=== PATIENT | female | born 1940 | race Caucasian/White ===

== ENCOUNTER 2017-11-23 12:08 | Emergency (ER) | payer MEDICARE, OTHER ==
[~2017-11-23] VITALS: Ht 152.4 cm; Wt 95.2 kg
[~2017-11-23 12:08] MED LIST: ALLO100 PO; AMLO5 PO; ANAS1 PO; ASPI81CH PO; ASPI81EC PO; Aranesp40 MCG/0.4 INJ; Baclofen10 MG PO; CLON.2 PO; DARVOCET; FOLI1 PO; FURO20 PO; HYDACE5 PO; HYDR1TAB94 PO; HYDSUL200 PO; LEVFLO250 PO; LOSA50 PO; METO50 PO; METO50ER PO; METTREX2.5 PO; MULVITMINF PO; Mucinex600 MG PO; POTA10T PO; PRAV20 PO; Prilosec Otc20 MG PO; TRIHYD253B PO; Tylenol325 MG PO; VITAMIN D-32000 UNIT PO; Vibramycin100 MG PO
== END 2017-11-23 14:29 | disposition home or self-care (01) ==
LOC: ER 12:08
DX: S70.01XA Contusion of right hip, initial encounter (principal); M25.511 Pain in right shoulder; M25.562 Pain in left knee; M25.561 Pain in right knee; M25.571 Pain in right ankle and joints of right foot; M25.572 Pain in left ankle and joints of left foot; Z87.891 Personal history of nicotine dependence; W01.0XXA Fall on same level from slipping, tripping and stumbling without subsequent striking against object, initial encounter
CPT/HCPCS: 73502; 99283

== ENCOUNTER 2017-12-11 14:34 | Emergency (ER) | payer MEDICARE, OTHER ==
[~2017-12-11] VITALS: Ht 152.4 cm; Wt 95.2 kg
[2017-12-11 15:21] LABS: BASOPHILS ABSOLUTE AUTO 0.06 K/mm3 (0.00-0.23); BASOPHILS PERCENT AUTO 1 % (0-2); EOSINOPHILS PERCENT AUTO 5 % (0-6); Hematocrit 34.1 % (33.0-51.0); Hemoglobin 10.2 g/dL (11.5-16.0); IMMATURE GRAN ABSOLUTE AUTO 0.11 K/mm3 (0.00-0.10); IMMATURE GRAN PERCENT AUTO 1 % (0-1); LYMPHOCYTES ABSOLUTE AUTO 1.26 K/mm3 (0.84-5.20); LYMPHOCYTES PERCENT AUTO 11 % (21-46); MONOCYTES ABSOLUTE AUTO 0.95 K/mm3 (0.16-1.47); MONOCYTES PERCENT AUTO 8 % (4-13); Mean Corpuscular HGB 27.6 pg (26.0-34.0); Mean Corpuscular HGB Conc 29.9 g/dL (31.5-36.5); Mean Corpuscular Volume 92 fL (80-100); Mean Platelet Volume 9.5 fL (9.1-12.4); NEUTROPHILS ABSOLUTE AUTO 8.96 K/mm3 (1.96-9.15); NEUTROPHILS PERCENT AUTO 75 % (41-73); Platelet Count 276 K/mm3 (150-400); RDW Coefficient Variation 19.5 % (11.7-14.2); RDW Standard Deviation 66.7 fL (35.1-46.3); White Blood Cell Count 11.94 K/mm3 (4.00-11.30)
[2017-12-11 15:31] LABS: International Normalized Ratio 1.02; Prothrombin Time Results 10.6 Sec (9.7-11.5)
[2017-12-11] MEDS ORDERED: XARELTO15 MG PO (15:41)
[2017-12-11 15:47] LABS: Albumin, Blood 3.3 g/dL (3.4-5.0); Albumin/Globulin Ratio 0.8 (0.8-1.8); Bilirubin, Total 0.3 mg/dL (0.1-1.0); Bun/Creatinine Ratio 8.1 (12.0-20.0); Calcium, Blood 8.7 mg/dL (8.5-10.1); Creatinine, Blood 2.36 mg/dL (0.40-1.00); Globulin, Blood 4.1 g/dL (2.2-4.0); Total Protein, Blood 7.4 g/dL (6.4-8.2)
[2017-12-11] MEDS ORDERED: ELIQUIS5 MG PO (16:11)
== END 2017-12-11 17:58 | disposition home or self-care (01) ==
LOC: ER 14:34
PROVIDERS: Emergency Medicine
DX: I26.99 Other pulmonary embolism without acute cor pulmonale (principal); Z88.8 Allergy status to other drugs, medicaments and biological substances; Z88.0 Allergy status to penicillin; Z88.5 Allergy status to narcotic agent; Z88.2 Allergy status to sulfonamides; Z79.899 Other long term (current) drug therapy; Z79.891 Long term (current) use of opiate analgesic; Z79.82 Long term (current) use of aspirin; I10 Essential (primary) hypertension; Z87.891 Personal history of nicotine dependence; Z85.3 Personal history of malignant neoplasm of breast
CPT/HCPCS: 36415; 71260; 74160; 80053; 85025; 85610; 93005; 93010; 99283; Q9967

== ENCOUNTER 2018-01-17 00:45 | Emergency (ER) | payer MEDICARE, OTHER ==
[~2018-01-17] VITALS: Ht 154.9 cm; Wt 93.4 kg
[~2018-01-17 00:45] MED LIST changes: +ELIQUIS5 MG PO; +XARELTO15 MG PO
[2018-01-17] MEDS ORDERED: ANAS1 PO (01:23)
[2018-01-17] MEDS ORDERED: VITAMIN E400 UNIT PO (01:25)
[2018-01-17 01:54] LABS: BASOPHILS ABSOLUTE AUTO 0.06 K/mm3 (0.00-0.23); BASOPHILS PERCENT AUTO 1 % (0-2); EOSINOPHILS ABSOLUTE AUTO 0.46 K/mm3 (0.00-0.68); EOSINOPHILS PERCENT AUTO 5 % (0-6); Hematocrit 39.3 % (33.0-51.0); Hemoglobin 11.9 g/dL (11.5-16.0); IMMATURE GRAN ABSOLUTE AUTO 0.04 K/mm3 (0.00-0.10); IMMATURE GRAN PERCENT AUTO 0 % (0-1); LYMPHOCYTES ABSOLUTE AUTO 1.28 K/mm3 (0.84-5.20); LYMPHOCYTES PERCENT AUTO 13 % (21-46); MONOCYTES ABSOLUTE AUTO 0.98 K/mm3 (0.16-1.47); MONOCYTES PERCENT AUTO 10 % (4-13); Mean Corpuscular HGB 28.2 pg (26.0-34.0); Mean Corpuscular HGB Conc 30.3 g/dL (31.5-36.5); Mean Corpuscular Volume 93 fL (80-100); Mean Platelet Volume 9.7 fL (9.1-12.4); NEUTROPHILS ABSOLUTE AUTO 7.22 K/mm3 (1.96-9.15); NEUTROPHILS PERCENT AUTO 72 % (41-73); Platelet Count 258 K/mm3 (150-400); RDW Coefficient Variation 15.2 % (11.7-14.2); RDW Standard Deviation 52.3 fL (35.1-46.3); Red Blood Cell Count 4.22 M/mm3 (3.80-5.20); White Blood Cell Count 10.04 K/mm3 (4.00-11.30)
[2018-01-17 02:05] LABS: Bun/Creatinine Ratio 11.5 (12.0-20.0); Calcium, Blood 8.7 mg/dL (8.5-10.1); Creatinine, Blood 2.87 mg/dL (0.40-1.00); Magnesium, Blood 2.2 mg/dL (1.6-2.4); Potassium, Blood 4.3 mmol/L (3.5-5.5)
== END 2018-01-17 02:45 | disposition home or self-care (01) ==
LOC: ER 00:45
PROVIDERS: Emergency Medicine
DX: M25.532 Pain in left wrist (principal); I10 Essential (primary) hypertension; N19 Unspecified kidney failure; Z88.6 Allergy status to analgesic agent; Z88.0 Allergy status to penicillin; Z88.2 Allergy status to sulfonamides; Z88.5 Allergy status to narcotic agent; Z79.899 Other long term (current) drug therapy; Z79.82 Long term (current) use of aspirin; Z99.2 Dependence on renal dialysis; Z87.891 Personal history of nicotine dependence
CPT/HCPCS: 36415; 80048; 83735; 85025; 99283

== ENCOUNTER 2018-02-24 08:33 | Emergency (ER) | payer MEDICARE, OTHER ==
[~2018-02-24] VITALS: Ht 152.4 cm; Wt 98.9 kg
[~2018-02-24 08:33] MED LIST changes: +OMEP20ER PO; +PRAV10 PO; -PRAV20 PO; -Prilosec Otc20 MG PO; +VITAMIN E400 UNIT PO
[2018-02-24] MEDS ORDERED: BUME2 PO (09:02)
[2018-02-24] MEDS ORDERED: GABA100 PO (09:03)
[2018-02-24 09:58] LABS: BASOPHILS ABSOLUTE AUTO 0.05 K/mm3 (0.00-0.23); BASOPHILS PERCENT AUTO 1 % (0-2); EOSINOPHILS ABSOLUTE AUTO 0.18 K/mm3 (0.00-0.68); EOSINOPHILS PERCENT AUTO 2 % (0-6); Hematocrit 40.6 % (33.0-51.0); Hemoglobin 12.5 g/dL (11.5-16.0); IMMATURE GRAN ABSOLUTE AUTO 0.08 K/mm3 (0.00-0.10); IMMATURE GRAN PERCENT AUTO 1 % (0-1); LYMPHOCYTES PERCENT AUTO 12 % (21-46); MONOCYTES PERCENT AUTO 8 % (4-13); Mean Corpuscular HGB Conc 30.8 g/dL (31.5-36.5); Mean Corpuscular Volume 94 fL (80-100); Mean Platelet Volume 9.8 fL (9.1-12.4); NEUTROPHILS ABSOLUTE AUTO 8.25 K/mm3 (1.96-9.15); NEUTROPHILS PERCENT AUTO 77 % (41-73); Platelet Count 276 K/mm3 (150-400); RDW Coefficient Variation 15.9 % (11.7-14.2); RDW Standard Deviation 54.7 fL (35.1-46.3); Red Blood Cell Count 4.31 M/mm3 (3.80-5.20); White Blood Cell Count 10.76 K/mm3 (4.00-11.30)
[2018-02-24 10:26] LABS: Albumin, Blood 3.3 g/dL (3.4-5.0); Albumin/Globulin Ratio 0.8 (0.8-1.8); Bilirubin, Total 0.5 mg/dL (0.1-1.0); Bun/Creatinine Ratio 11.4 (12.0-20.0); Creatinine, Blood 2.9 mg/dL (0.40-1.00); Globulin, Blood 4.4 g/dL (2.2-4.0); Potassium, Blood 4.3 mmol/L (3.5-5.5); Total Protein, Blood 7.7 g/dL (6.4-8.2)
[2018-02-24] MEDS ORDERED: Claritin5 MG/5 ML PO (11:02)
== END 2018-02-24 11:19 | disposition home or self-care (01) ==
LOC: ER 08:33
PROVIDERS: Emergency Medicine
DX: J06.9 Acute upper respiratory infection, unspecified (principal); I12.0 Hypertensive chronic kidney disease with stage 5 chronic kidney disease or end stage renal disease; N18.6 End stage renal disease; Z99.2 Dependence on renal dialysis; Z87.891 Personal history of nicotine dependence; Z88.6 Allergy status to analgesic agent; Z88.0 Allergy status to penicillin; Z88.2 Allergy status to sulfonamides; Z88.5 Allergy status to narcotic agent; Z79.899 Other long term (current) drug therapy; Z79.82 Long term (current) use of aspirin
CPT/HCPCS: 71046; 80053; 85025; 99283

== ENCOUNTER → 2018-05-28 | Outpatient (CLI) | payer MEDICARE, OTHER ==
[~2018-05-28] MED LIST changes: +BUME2 PO; +Claritin5 MG/5 ML PO; +GABA100 PO
[2018-05-28 11:14] LABS: Source, Urine Clean Catch
[2018-05-28 13:28] LABS: Appearance, Urine Cloudy (Clear); Bilirubin, Urine Neg (Neg); Blood, Urine 4+ (Neg); Color, Urine Yellow (P-Yellow); Glucose Qualitative, Urine 2+ (Neg); Ketones, Urine Neg (Neg); Leukocyte Esterase, Urine 2+ (Neg); Nitrite, Urine Neg (Neg); Protein, Urine 4+ (Neg); Urobilinogen, Urine NORM (Normal)
[2018-05-28 13:43] LABS: Squamous Epithelial Cells Not Seen /hpf (Few); White Blood Cells, Urine TNTC /hpf (0-5)
[2018-05-28 13:44] LABS: Bacteria Few /hpf
== END | disposition home or self-care (01) ==
LOC: LAB SHORT 11:11 → LAB 11:11
PROVIDERS: Internal Medicine Nephrology
DX: R30.0 Dysuria (principal)
CPT/HCPCS: 81001

== ENCOUNTER → 2018-07-24 | Outpatient (CLI) | payer MEDICARE, OTHER ==
[2018-07-24 12:35] LABS: Bilirubin, Urine Neg (Neg); Blood, Urine 2+ (Neg); Glucose Qualitative, Urine 1+ (Neg); Ketones, Urine Neg (Neg); Leukocyte Esterase, Urine 3+ (Neg); Nitrite, Urine Neg (Neg); Protein, Urine 4+ (Neg); Urobilinogen, Urine NORM (Normal)
[2018-07-24 12:57] LABS: Appearance, Urine Hazy (Clear); Color, Urine Yellow (P-Yellow)
[2018-07-24 12:59] LABS: Squamous Epithelial Cells Few /hpf (Few); White Blood Cells, Urine 25-50 /hpf (0-5)
[2018-07-24 13:01] LABS: Bacteria Rare /hpf
== END | disposition home or self-care (01) ==
LOC: LAB DAV 05:30
PROVIDERS: Internal Medicine Nephrology
DX: N39.0 Urinary tract infection, site not specified (principal)
CPT/HCPCS: 81001; 87086

== ENCOUNTER 2018-10-27 10:28 | Inpatient (IN) | payer MEDICARE, OTHER ==
[~2018-10-27] VITALS: Ht 152.4 cm; Wt 95.4 kg
[~2018-10-27 10:28] MED LIST changes: -OMEP20ER PO; -PRAV10 PO; +PRAV20 PO; +Prilosec Otc20 MG PO
[2018-10-27 11:23] LABS: BASOPHILS ABSOLUTE AUTO 0.04 K/mm3 (0.00-0.23); BASOPHILS PERCENT AUTO 0 % (0-2); EOSINOPHILS ABSOLUTE AUTO 0.21 K/mm3 (0.00-0.68); EOSINOPHILS PERCENT AUTO 2 % (0-6); Hematocrit 32.1 % (33.0-51.0); IMMATURE GRAN ABSOLUTE AUTO 0.06 K/mm3 (0.00-0.10); IMMATURE GRAN PERCENT AUTO 1 % (0-1); LYMPHOCYTES PERCENT AUTO 7 % (21-46); MONOCYTES ABSOLUTE AUTO 0.65 K/mm3 (0.16-1.47); MONOCYTES PERCENT AUTO 6 % (4-13); Mean Corpuscular HGB 30.6 pg (26.0-34.0); Mean Corpuscular HGB Conc 31.2 g/dL (31.5-36.5); Mean Corpuscular Volume 98 fL (80-100); Mean Platelet Volume 9.8 fL (9.1-12.4); NEUTROPHILS ABSOLUTE AUTO 8.69 K/mm3 (1.96-9.15); NEUTROPHILS PERCENT AUTO 84 % (41-73); Platelet Count 290 K/mm3 (150-400); RDW Coefficient Variation 15.6 % (11.7-14.2); RDW Standard Deviation 55.9 fL (35.1-46.3); Red Blood Cell Count 3.27 M/mm3 (3.80-5.20); White Blood Cell Count 10.35 K/mm3 (4.00-11.30)
[2018-10-27 12:39] LABS: Albumin, Blood 3.4 g/dL (3.4-5.0); Albumin/Globulin Ratio 0.8 (0.8-1.8); Bilirubin, Total 0.6 mg/dL (0.1-1.0); Bun/Creatinine Ratio 8.8 (12.0-20.0); Calcium, Blood 9.1 mg/dL (8.5-10.1); Creatinine, Blood 3.08 mg/dL (0.40-1.00); Globulin, Blood 4.4 g/dL (2.2-4.0); Potassium, Blood 4.5 mmol/L (3.5-5.5); Total Protein, Blood 7.8 g/dL (6.4-8.2); Troponin I 0.036 ng/mL (0.000-0.040)
[2018-10-28 05:10] LABS: Hematocrit 34.5 % (33.0-51.0); Hemoglobin 10.4 g/dL (11.5-16.0)
[2018-10-28 05:36] LABS: Magnesium, Blood 2.2 mg/dL (1.6-2.4)
[2018-10-28 05:50] LABS: Albumin, Blood 3.6 g/dL (3.4-5.0); Anion Gap 10 mmol/L (6-16); Blood Urea Nitrogen 20 mg/dL (8-24); Bun/Creatinine Ratio 7.1 (12.0-20.0); CO2, Blood 30 mmol/L (21-32); Calcium, Blood 9.3 mg/dL (8.5-10.1); Chloride, Blood 96 mmol/L (98-108); Creatinine, Blood 2.82 mg/dL (0.40-1.00); Glomerular Filtration Rate 17 (60-); Glucose, Blood 239 mg/dL (70-99); Phosphorus, Blood 3.5 mg/dL (2.5-4.9); Potassium, Blood 4.1 mmol/L (3.5-5.5); Sodium, Blood 136 mmol/L (136-145)
== END 2018-10-28 13:29 | disposition home or self-care (01) | DRG 291 ==
LOC: ER 10:28 → ERHOLD 14:58 → MEDS 14:58 → ENPENDDIS 10-28 12:35 → MEDS 10-28 13:29
PROVIDERS: Emergency Medicine; Internal Medicine; Internal Medicine Nephrology
DX: I13.2 Hypertensive heart and chronic kidney disease with heart failure and with stage 5 chronic kidney disease, or end stage renal disease (principal); J96.01 Acute respiratory failure with hypoxia; N18.6 End stage renal disease; I50.31 Acute diastolic (congestive) heart failure; D63.1 Anemia in chronic kidney disease; Z99.2 Dependence on renal dialysis; Z85.528 Personal history of other malignant neoplasm of kidney; Z87.891 Personal history of nicotine dependence; I42.9 Cardiomyopathy, unspecified; Z85.3 Personal history of malignant neoplasm of breast
CPT/HCPCS: 36415; 51798; 71046; 80053; 80069; 82947; 83735; 83880; 84443; 84484; 85014; 85018; 85025; 93005; 93010; 93306; 99285-25; J0360

== ENCOUNTER 2019-05-21 13:51 | Observation (INO) | payer MEDICARE, OTHER ==
[~2019-05-21] VITALS: Ht 152.4 cm; Wt 111.4 kg
[2019-05-21] MEDS ORDERED: Percocet 5-3251 EACH PO ×2 (14:30)
[2019-05-21] MEDS ORDERED: ELIQUIS5 MG PO ×2 (14:30)
[2019-05-21] MEDS ORDERED: ALLO100 PO ×2 (14:31)
[2019-05-21] MEDS ORDERED: CALCIPOTRIENE60 G1 TOP ×2 (14:31)
[2019-05-21] MEDS ORDERED: VITAMIN D32000 UNI1 PO ×2 (14:32)
[2019-05-21] MEDS ORDERED: [UNRECOGNIZED DRUG - OTHER] BOTHEYES ×2 (14:32)
[2019-05-21] MEDS ORDERED: FOLI1 PO ×2 (14:33)
[2019-05-21] MEDS ORDERED: CLON.1 PO ×2 (14:34)
[2019-05-21] MEDS ORDERED: METO50 PO ×4 (14:34→14:40)
[2019-05-21] MEDS ORDERED: ANASTROZOLE PO ×2 (14:34)
[2019-05-21] MEDS ORDERED: TYLENOL PO ×2 (14:35)
[2019-05-21 14:38] LABS: BASOPHILS ABSOLUTE AUTO 0.06 K/mm3 (0.00-0.23); BASOPHILS PERCENT AUTO 1 % (0-2); EOSINOPHILS ABSOLUTE AUTO 0.42 K/mm3 (0.00-0.68); EOSINOPHILS PERCENT AUTO 4 % (0-6); Hematocrit 38.8 % (33.0-51.0); Hemoglobin 11.7 g/dL (11.5-16.0); IMMATURE GRAN ABSOLUTE AUTO 0.07 K/mm3 (0.00-0.10); IMMATURE GRAN PERCENT AUTO 1 % (0-1); LYMPHOCYTES ABSOLUTE AUTO 0.95 K/mm3 (0.84-5.20); LYMPHOCYTES PERCENT AUTO 10 % (21-46); MONOCYTES ABSOLUTE AUTO 0.78 K/mm3 (0.16-1.47); MONOCYTES PERCENT AUTO 8 % (4-13); Mean Corpuscular HGB 30.2 pg (26.0-34.0); Mean Corpuscular HGB Conc 30.2 g/dL (31.5-36.5); Mean Corpuscular Volume 100 fL (80-100); Mean Platelet Volume 9.8 fL (9.1-12.4); NEUTROPHILS PERCENT AUTO 77 % (41-73); Platelet Count 227 K/mm3 (150-400); RDW Coefficient Variation 15.8 % (11.7-14.2); Red Blood Cell Count 3.88 M/mm3 (3.80-5.20); White Blood Cell Count 9.68 K/mm3 (4.00-11.30)
[2019-05-21] MEDS ORDERED: FURO20 PO ×2 (14:38)
[2019-05-21] MEDS ORDERED: HYDR10 PO ×2 (14:39)
[2019-05-21] MEDS ORDERED: PRAVASTATIN SOD10 MG PO ×2 (14:40)
[2019-05-21] MEDS ORDERED: OMEP20ER PO ×2 (14:40)
[2019-05-21 15:12] LABS: Albumin, Blood 3.8 g/dL (3.4-5.0); Bilirubin, Total 0.5 mg/dL (0.1-1.0); Bun/Creatinine Ratio 9.1 (12.0-20.0); Calcium, Blood 9.1 mg/dL (8.5-10.1); Creatinine, Blood 3.95 mg/dL (0.40-1.00); Globulin, Blood 3.9 g/dL (2.2-4.0); Potassium, Blood 3.8 mmol/L (3.5-5.5); Total Protein, Blood 7.7 g/dL (6.4-8.2)
--- NOTE | 2019-05-21 18:40 | NUR ---
PATIENT ADMITT THE PATIENT WAS ADMITTED TO THE MEDICAL FLOOR TO ROOM #361 AT 1720 FORM THE E/R. THE PATIENT'S ADMISSION WAS COMPLETED AT THAT TIME. THE PATIENT VITALS WERE WNL, LUNG SOUNDS WERE CLEAR BUT DIM IN THE BASES, THE PATIENT IS A&O X4. THE PATIENT IS NPO AT THIS TIME. WILL CONTINUE TO MONITOR.
[2019-05-22 05:27] LABS: Hematocrit 35.7 % (33.0-51.0); Hemoglobin 10.9 g/dL (11.5-16.0)
[2019-05-22 05:45] LABS: Albumin, Blood 3.4 g/dL (3.4-5.0); Anion Gap 8 mmol/L (6-16); Blood Urea Nitrogen 42 mg/dL (8-24); Bun/Creatinine Ratio 10.4 (12.0-20.0); CO2, Blood 29 mmol/L (21-32); Calcium, Blood 8.9 mg/dL (8.5-10.1); Chloride, Blood 101 mmol/L (98-108); Creatinine, Blood 4.04 mg/dL (0.40-1.00); Glomerular Filtration Rate 11 (60-); Glucose, Blood 142 mg/dL (70-99); Magnesium, Blood 2.2 mg/dL (1.6-2.4); Phosphorus, Blood 4.4 mg/dL (2.5-4.9); Potassium, Blood 3.9 mmol/L (3.5-5.5); Sodium, Blood 138 mmol/L (136-145)
--- NOTE | 2019-05-22 13:44 | NUR ---
DIALYSIS TOOK MACHINE INTO PCU 1, STARTED TO SETUP THE MACHINE. PT WAS IN A RECLINER AND DECIDED TO STAY IN IT FOR THE TX. GOT MACHINE READY AND WAS GOING TO START GETTING THE PT ON WHEN HE DECIDED TO RETURN TO BED. THE OPERATIONS GENERAL AGENT AND RN RETURNED PT TO BED. PLANNED TO RUN THE PT FOR 3 HOURS, BUT THE LAST 17 MIN IT BEGAN TO HAVE ART PRESSURE PROBLEMS. FLUSHED WITH NS. USED 2 ML HEPARIN BOLUS. DC'ED TX 14 MINS EARLY.
--- NOTE | 2019-05-22 17:38 | NUR ---
PATIENT TO HAVE SHRUTHI CATH FIXED ON FRIDAY. NO DIALYSIS TODAY DUE TO CONDITION OF CATH. PATIENT ALERT AND ORIENTED AND NO ACUTE CHANGES. NO CO OF SOB OR DISTRESS NOTED. CALL LIGHT WITHIN REACH.
--- NOTE | 2019-05-23 05:01 | NUR ---
Shift summary:Pt has had quite a bit of productive coughing during the night which increases her anxiety. Called MD and got order for tessalon pearles which seem to help some. BP 197/84. Another dose of hydralazine given. will recheck in an hour,
[2019-05-23 05:06] LABS: Hematocrit 36.3 % (33.0-51.0); Hemoglobin 11.1 g/dL (11.5-16.0)
[2019-05-23 05:26] LABS: Albumin, Blood 3.4 g/dL (3.4-5.0); Anion Gap 11 mmol/L (6-16); Blood Urea Nitrogen 48 mg/dL (8-24); Bun/Creatinine Ratio 12.1 (12.0-20.0); CO2, Blood 27 mmol/L (21-32); Calcium, Blood 9.1 mg/dL (8.5-10.1); Chloride, Blood 102 mmol/L (98-108); Creatinine, Blood 3.98 mg/dL (0.40-1.00); Glomerular Filtration Rate 12 (60-); Glucose, Blood 134 mg/dL (70-99); Magnesium, Blood 2.3 mg/dL (1.6-2.4); Phosphorus, Blood 4.6 mg/dL (2.5-4.9); Potassium, Blood 4.1 mmol/L (3.5-5.5); Sodium, Blood 140 mmol/L (136-145)
--- NOTE | 2019-05-23 08:56 | NUR ---
0840 PATIENT STATED IV SITE VERY PAINFUL. RED AND SWOLLEN UPON ASSESSMENT. ATTEMPTED TO FLUSH BUT VERY PAINFUL AND WAS LEAKING. NURSE REMOVED. PATIENT IS NOT ON ANY IV MEDS AT THIS TIME.
--- NOTE | 2019-05-23 17:24 | NUR ---
1715 PATIENT TO DISCHARGE HOME. NURSE WENT OVER DISCHARGE INSTRUCTIONS WITH PATIENT. PATIENT INSTRUCTED TO FOLLOW UP WITH LISTED DOCTORS. APPOINTMENTS UNABLE TO BE SCHEDULED SINCE ITS A FRIDAY. PT ALREADY HAS APPOINTMENT WITH PCP. NO NEW MEDS WHERE ORDERED. PATIENT TAKEN OUT BY WC TO BROTHER TO BE TAKEN HOME.
[2019-05-24] MEDS ORDERED: GABA100 PO (16:20)
[2019-05-24] MEDS ORDERED: Zantac150 MG PO (16:20)
[2019-05-24] MEDS ORDERED: CLON.5 PO ×3 (16:23→16:26)
[2019-05-24] MEDS ORDERED: TYLENOL PO (16:23)
== END 2019-05-23 17:16 | disposition home or self-care (01) ==
LOC: ER 13:51 → MEDS 13:52 → ER 15:37 → MEDS 15:37 → ER 05-23 10:47 → MEDS 05-23 10:47
PROVIDERS: Emergency Medicine; Internal Medicine Nephrology; ADMIT Family Medicine
DX: T82.49XA Other complication of vascular dialysis catheter, initial encounter (principal); I12.0 Hypertensive chronic kidney disease with stage 5 chronic kidney disease or end stage renal disease; N18.6 End stage renal disease; D63.1 Anemia in chronic kidney disease; J96.01 Acute respiratory failure with hypoxia; I16.0 Hypertensive urgency; K21.9 Gastro-esophageal reflux disease without esophagitis; M19.90 Unspecified osteoarthritis, unspecified site; M10.9 Gout, unspecified; E89.0 Postprocedural hypothyroidism; Z99.2 Dependence on renal dialysis; Z88.5 Allergy status to narcotic agent; Z88.6 Allergy status to analgesic agent; Z88.0 Allergy status to penicillin; Z88.2 Allergy status to sulfonamides; Z79.899 Other long term (current) drug therapy; Z79.01 Long term (current) use of anticoagulants; Z87.891 Personal history of nicotine dependence; Z86.711 Personal history of pulmonary embolism; Z85.3 Personal history of malignant neoplasm of breast; Z85.53 Personal history of malignant neoplasm of renal pelvis; Z96.641 Presence of right artificial hip joint; Z90.89 Acquired absence of other organs; Z90.5 Acquired absence of kidney
CPT/HCPCS: 36415; 71045; 80048; 80053; 80069; 83735; 83880; 85014; 85018; 85025; 93005; 93010; 96372; 96374; 96376; 99285-25; A9270; G0378; J0360; J1644

== ENCOUNTER 2019-05-25 09:50 | Day surgery (SDC) | payer MEDICARE, OTHER ==
[~2019-05-25] VITALS: Ht 154.9 cm; Wt 87.0 kg
[~2019-05-25 09:50] MED LIST changes: +ANASTROZOLE PO; +CALCIPOTRIENE60 G1 TOP; +CLON.1 PO; +CLON.5 PO; +HYDR10 PO; +OMEP20ER PO; +PRAVASTATIN SOD10 MG PO; +Percocet 5-3251 EACH PO; +TYLENOL PO; +VITAMIN D32000 UNI1 PO; +Zantac150 MG PO; +[UNRECOGNIZED DRUG - OTHER] BOTHEYES
--- NOTE | 2019-05-25 13:50 | NUR ---
PT VERBALIZED UNDERSTANDING OF WRITTEN AND VERBAL D/C INST. IV REMOVED. -BLEEDING OR SWELLING L UPPER CHEST AREA. PT TAKEN OUT OF THE HRT CENTER VIA GURNEY.
== END 2019-05-25 13:00 | disposition home or self-care (01) ==
LOC: MHTC 09:50
PROC: 0JPT3XZ Removal of Tunneled Vascular Access Device from Trunk Subcutaneous Tissue and Fascia, Percutaneous Approach (ICD-10-PCS; principal; 2019-05-25)
PROC: B5181ZA Fluoroscopy of Superior Vena Cava using Low Osmolar Contrast, Guidance (ICD-10-PCS; principal; 2019-05-25)
PROC: 02HV33Z Insertion of Infusion Device into Superior Vena Cava, Percutaneous Approach (ICD-10-PCS; principal; 2019-05-25)
PROC: 02PY33Z Removal of Infusion Device from Great Vessel, Percutaneous Approach (ICD-10-PCS; principal; 2019-05-25)
PROC: 0JH63XZ Insertion of Tunneled Vascular Access Device into Chest Subcutaneous Tissue and Fascia, Percutaneous Approach (ICD-10-PCS; principal; 2019-05-25)
DX: T82.590A Other mechanical complication of surgically created arteriovenous fistula, initial encounter (principal); N18.6 End stage renal disease; I12.0 Hypertensive chronic kidney disease with stage 5 chronic kidney disease or end stage renal disease; E11.22 Type 2 diabetes mellitus with diabetic chronic kidney disease; Z99.2 Dependence on renal dialysis; M06.9 Rheumatoid arthritis, unspecified; M81.0 Age-related osteoporosis without current pathological fracture; E03.9 Hypothyroidism, unspecified; M10.9 Gout, unspecified; Z90.5 Acquired absence of kidney; Z88.0 Allergy status to penicillin; Z88.5 Allergy status to narcotic agent; Z88.2 Allergy status to sulfonamides; Z88.8 Allergy status to other drugs, medicaments and biological substances; Z79.01 Long term (current) use of anticoagulants; Z79.899 Other long term (current) drug therapy; Z79.891 Long term (current) use of opiate analgesic
CPT/HCPCS: 36581; 99152; 99153; C1750; C1769; J1644; J2250; J3010; J7030; J7040

== ENCOUNTER 2019-10-05 08:11 | Day surgery (SDC) | payer MEDICARE, OTHER ==
--- NOTE | 2019-10-05 10:52 | NUR ---
PT PLACED ON 4LNC ON ARRIVAL. PT COUGHING UP SCANT AMOUNT OF BLOOD. PRACTICED RELAXATION BREATHING. PT DEMONSTRATING BACK WITHOUT DIFFICULTY. O2SATS IMPROVED AND ABLE TO DECREASE OXYGEN DOWN TO TWO LITERS. WILL CONTINUE TO MONITOR AND PROVIDE EMOTIONAL SUPPORT. DAJUAN PRADO CALLED PER PT REQUEST. AND IS WITH PATIENT AT THIS MOMENT. HEMATOMA TO BACK AT BIOPSY SITE HAS NOT GOTTEN BIGGER OUT OF PARAMETER OF LINE DRAWN BY RAD DEPARTMENT. WILL CONTINUE TO MONITOR. WARM BLANKETS PROVIDED, REPOSTIONED TO HIGH SEMI WHITE POSITION.
--- NOTE | 2019-10-05 11:33 | NUR ---
PT TOOK AM PILLS. UPDATED LIST. PT B/P REMAINS HIGH, SPOKE TO AMADOR AT [facility] AND CHANGED APPT TO 1PM INSTEAD OF 11AM DUE TO HER BEING WITH US AT THAT TIME. PT STATES B/P ALWAYS RUNS HIGH. WILL CONTINUE TO MONITOR.
--- NOTE | 2019-10-05 13:05 | NUR ---
SPOKE TO DR DEVI REGARDING HIGH B/P AND LOW O2 SATS ON RA. DR KEITAED PT TO BE DISCHARED AND REPORT TO DIALYSIS. PT AGREEABLE. Discharge instructions reviewed with patient. Patient verbalizes understanding. Copy given to patient to take home. Patient States Post-Procedure ride home has been arranged. Discharged via wheelchair to private car for ride home. ALL BELONINGS RETURNED TO PATIENT.
== END 2019-10-05 23:00 | disposition home or self-care (01) ==
LOC: CT 08:11
DX: C78.01 Secondary malignant neoplasm of right lung (principal); C50.912 Malignant neoplasm of unspecified site of left female breast; C64.1 Malignant neoplasm of right kidney, except renal pelvis; I12.9 Hypertensive chronic kidney disease with stage 1 through stage 4 chronic kidney disease, or unspecified chronic kidney disease; E11.22 Type 2 diabetes mellitus with diabetic chronic kidney disease; N18.9 Chronic kidney disease, unspecified; M10.9 Gout, unspecified; E89.0 Postprocedural hypothyroidism; F32.9 Major depressive disorder, single episode, unspecified; Z17.0 Estrogen receptor positive status [ER+]; Z87.891 Personal history of nicotine dependence; Z79.01 Long term (current) use of anticoagulants; Z79.899 Other long term (current) drug therapy; Z88.0 Allergy status to penicillin; Z88.2 Allergy status to sulfonamides; Z88.5 Allergy status to narcotic agent; Z88.6 Allergy status to analgesic agent
CPT/HCPCS: 32405; 71045; 77012

== ENCOUNTER → 2019-12-15 | Outpatient (CLI) | payer MEDICARE, OTHER ==
[2019-12-15 13:20] LABS: Hematocrit 34.9 % (33.0-51.0); Hemoglobin 11.2 g/dL (11.5-16.0)
== END | disposition home or self-care (01) ==
LOC: LAB DAV 13:14
PROVIDERS: Internal Medicine Nephrology
DX: N18.6 End stage renal disease (principal)
CPT/HCPCS: 85014; 85018

== ENCOUNTER 2020-01-10 12:27 | Emergency (ER) | payer MEDICARE, OTHER ==
[~2020-01-10] VITALS: Ht 152.4 cm; Wt 76.7 kg
== END 2020-01-10 15:05 | disposition home or self-care (01) ==
LOC: ER 12:27
DX: M54.2 Cervicalgia (principal); Z88.0 Allergy status to penicillin; Z88.2 Allergy status to sulfonamides; Z88.5 Allergy status to narcotic agent; Z88.6 Allergy status to analgesic agent
CPT/HCPCS: 93880; 99284-25

== ENCOUNTER 2020-06-26 14:10 | Emergency (ER) | payer MEDICARE, OTHER ==
[~2020-06-26] VITALS: Ht 152.4 cm; Wt 76.7 kg
[~2020-06-26 14:10] MED LIST changes: +ACET500 PO; +ANASTROZOLE5 GM PO; +AZIT250 PO; +BENADRYL25 MG PO; +CEFP200 PO; +DOXY100 PO; +ELIQUIS2.5 MG PO; +FURO80 PO; +LEVOFLOXACIN250 MG PO; +LOSARTAN POTASS50 M1 PO; +MACROBID 100 M100 MG PO; +Metoprolol Tar100 MG PO; +NYAMYC15 G1 TOP; +OXYB5 PO; +Pyridium200 MG PO; +ROBITUSSIN COU237 M3 PO; +SEVEC800 PO
--- NOTE | 2020-06-26 15:20 | NUR ---
Svitlana is well-known to me and always asks for prayer when she comes to [facility]. Provided calm presence and prayer. She appears frail and tired. Conversation interrupted frequently with bouts of coughing. I will remain available.
[2020-06-26 15:48] LABS: BASOPHILS ABSOLUTE AUTO 0.04 K/mm3 (0.00-0.23); BASOPHILS PERCENT AUTO 0 % (0-2); EOSINOPHILS PERCENT AUTO 1 % (0-6); Hematocrit 31.4 % (33.0-51.0); IMMATURE GRAN ABSOLUTE AUTO 0.08 K/mm3 (0.00-0.10); IMMATURE GRAN PERCENT AUTO 1 % (0-1); LYMPHOCYTES PERCENT AUTO 5 % (21-46); MONOCYTES ABSOLUTE AUTO 0.24 K/mm3 (0.16-1.47); MONOCYTES PERCENT AUTO 2 % (4-13); Mean Corpuscular HGB 31.9 pg (26.0-34.0); Mean Corpuscular HGB Conc 31.8 g/dL (31.5-36.5); Mean Corpuscular Volume 100 fL (80-100); Mean Platelet Volume 9.6 fL (9.1-12.4); NEUTROPHILS PERCENT AUTO 92 % (41-73); Platelet Count 244 K/mm3 (150-400); RDW Coefficient Variation 14.9 % (11.7-14.2); RDW Standard Deviation 54.9 fL (35.1-46.3); Red Blood Cell Count 3.13 M/mm3 (3.80-5.20); White Blood Cell Count 13.26 K/mm3 (4.00-11.30)
[2020-06-26 16:10] LABS: Bun/Creatinine Ratio 7.1 (12.0-20.0); Calcium, Blood 8.9 mg/dL (8.5-10.1); Creatinine, Blood 2.67 mg/dL (0.40-1.00); Potassium, Blood 4.1 mmol/L (3.5-5.5)
[2020-06-26 17:31] LABS: Source, Urine Clean Catch
[2020-06-26 17:34] LABS: Bilirubin, Urine Neg (Neg); Blood, Urine 3+ (Neg); Glucose Qualitative, Urine 1+ (Neg); Ketones, Urine Neg (Neg); Leukocyte Esterase, Urine 3+ (Neg); Nitrite, Urine Neg (Neg); Protein, Urine 3+ (Neg); Urobilinogen, Urine NORM (Normal)
[2020-06-26 17:46] LABS: Appearance, Urine Turbid (Clear); Color, Urine Yellow (P-Yellow)
[2020-06-26 17:48] LABS: Bacteria Few /hpf; Squamous Epithelial Cells Few /hpf (Few); White Blood Cells, Urine TNTC /hpf (0-5)
== END 2020-06-26 19:31 | disposition home or self-care (01) ==
LOC: ER 14:10
PROVIDERS: Physician Assistant
DX: J40 Bronchitis, not specified as acute or chronic (principal); N39.0 Urinary tract infection, site not specified; Z88.5 Allergy status to narcotic agent; Z88.0 Allergy status to penicillin; Z88.6 Allergy status to analgesic agent; Z88.2 Allergy status to sulfonamides; Z79.899 Other long term (current) drug therapy; Z79.2 Long term (current) use of antibiotics; E66.9 Obesity, unspecified; Z68.33 Body mass index [BMI] 33.0-33.9, adult; Z87.891 Personal history of nicotine dependence
CPT/HCPCS: 36415; 71046; 80048; 81001; 85025; 87086; 99284-25

== ENCOUNTER → 2020-08-29 | Outpatient (CLI) | payer MEDICARE, OTHER ==
[~2020-08-29] MED LIST changes: +Tessalon Perle100 MG PO
[2020-08-29 11:51] LABS: Source, Urine Clean Catch
[2020-08-29 13:40] LABS: Appearance, Urine Hazy (Clear); Blood, Urine 3+ (Neg); Color, Urine Yellow (P-Yellow); Glucose Qualitative, Urine Neg (Neg); Ketones, Urine Neg (Neg); Leukocyte Esterase, Urine 3+ (Neg); Nitrite, Urine Neg (Neg); Protein, Urine 3+ (Neg); Urobilinogen, Urine NORM (Normal)
[2020-08-29 13:55] LABS: Bilirubin, Urine 2+ (Neg)
[2020-08-29 13:58] LABS: Squamous Epithelial Cells Rare /hpf (Few); White Blood Cells, Urine TNTC /hpf (0-5)
[2020-08-29 13:59] LABS: Bacteria Rare /hpf
== END | disposition home or self-care (01) ==
LOC: LAB SHORT 11:50 → LAB 11:50
PROVIDERS: Urology
DX: N39.0 Urinary tract infection, site not specified (principal)
CPT/HCPCS: 81001

== ENCOUNTER 2020-09-28 09:36 | Day surgery (SDC) | payer MEDICARE, OTHER ==
[~2020-09-28] VITALS: Ht 154.9 cm; Wt 118.0 kg
[~2020-09-28 09:36] MED LIST changes: +ALPR.5 PO; +Ranitidine HCl150 M1 PO
[2020-09-28] MEDS ORDERED: ELIQUIS5 M2 PO (10:06)
--- NOTE | 2020-09-28 12:08 | NUR ---
PATIENT DISCHARGED TO [facility] WHERE SHE RESIDES. TRANSFERRED BY [employer] SUPERVISOR PRE WAVE (ABDIAZIZ). CATHETER SITE DRESSING DRY AND INTACT IV DCED WITH CATHETER INTACT. PATIENT VERBALIZED UNDERSTANDING OF DISCHARGE INSTRUCTIONS. A&O DENIES PAIN. NO FURTHER QUESTIONS
== END 2020-09-28 13:18 | disposition home or self-care (01) ==
LOC: MHTC 09:36
DX: T82.49XA Other complication of vascular dialysis catheter, initial encounter (principal); I12.0 Hypertensive chronic kidney disease with stage 5 chronic kidney disease or end stage renal disease; E11.22 Type 2 diabetes mellitus with diabetic chronic kidney disease; N18.6 End stage renal disease; M81.0 Age-related osteoporosis without current pathological fracture; M06.9 Rheumatoid arthritis, unspecified; E89.0 Postprocedural hypothyroidism; M10.9 Gout, unspecified; N28.89 Other specified disorders of kidney and ureter; Z99.2 Dependence on renal dialysis; Z88.0 Allergy status to penicillin; Z88.2 Allergy status to sulfonamides; Z88.5 Allergy status to narcotic agent; Z88.8 Allergy status to other drugs, medicaments and biological substances; Z79.01 Long term (current) use of anticoagulants; Z79.899 Other long term (current) drug therapy; Z51.5 Encounter for palliative care; Z87.891 Personal history of nicotine dependence; Y84.0 Cardiac catheterization as the cause of abnormal reaction of the patient, or of later complication, without mention of misadventure at the time of the procedure
CPT/HCPCS: 99152; C1750; C1769; J1644; J2250; J3010; J7040

== ENCOUNTER 2020-11-13 19:47 | Inpatient (IN) | payer MEDICARE, OTHER ==
[~2020-11-13] VITALS: Ht 152.4 cm; Wt 68.0 kg
[2020-11-13 20:43] LABS: Source, Urine Clean Catch
[2020-11-13] MEDS ORDERED: HYDR10 PO ×2 (20:43→21:45)
[2020-11-13] MEDS ORDERED: HYDHCL25 PO (20:44)
[2020-11-13 20:46] LABS: Appearance, Urine Clear (Clear); Bilirubin, Urine Neg (Neg); Blood, Urine 1+ (Neg); Color, Urine Yellow (P-Yellow); Glucose Qualitative, Urine Neg (Neg); Ketones, Urine Neg (Neg); Leukocyte Esterase, Urine 1+ (Neg); Nitrite, Urine Neg (Neg); Protein, Urine 3+ (Neg); Urobilinogen, Urine NORM (Normal)
[2020-11-13] MEDS ORDERED: Aspirin EC81 MG PO (20:46)
[2020-11-13] MEDS ORDERED: LOSA50 PO (20:48)
[2020-11-13] MEDS ORDERED: CINA30 PO (20:51)
[2020-11-13] MEDS ORDERED: OMEP20ER PO (20:53)
[2020-11-13] MEDS ORDERED: CLON.2 PO (20:53)
[2020-11-13 20:58] LABS: Bacteria Rare /hpf; Red Blood Cells, Urine 0-2 /hpf (0-2); Squamous Epithelial Cells Few /hpf (Few)
[2020-11-13 21:06] LABS: BASOPHILS ABSOLUTE AUTO 0.03 K/mm3 (0.00-0.23); BASOPHILS PERCENT AUTO 0 % (0-2); EOSINOPHILS ABSOLUTE AUTO 0.04 K/mm3 (0.00-0.68); EOSINOPHILS PERCENT AUTO 0 % (0-6); Hematocrit 24.4 % (33.0-51.0); Hemoglobin 7.3 g/dL (11.5-16.0); IMMATURE GRAN ABSOLUTE AUTO 0.08 K/mm3 (0.00-0.10); IMMATURE GRAN PERCENT AUTO 1 % (0-1); LYMPHOCYTES ABSOLUTE AUTO 0.61 K/mm3 (0.84-5.20); LYMPHOCYTES PERCENT AUTO 6 % (21-46); MONOCYTES ABSOLUTE AUTO 0.62 K/mm3 (0.16-1.47); MONOCYTES PERCENT AUTO 6 % (4-13); Mean Corpuscular HGB 27.1 pg (26.0-34.0); Mean Corpuscular HGB Conc 29.9 g/dL (31.5-36.5); Mean Corpuscular Volume 91 fL (80-100); Mean Platelet Volume 10.1 fL (9.1-12.4); NEUTROPHILS ABSOLUTE AUTO 9.11 K/mm3 (1.96-9.15); NEUTROPHILS PERCENT AUTO 87 % (41-73); Platelet Count 235 K/mm3 (150-400); RDW Coefficient Variation 15.5 % (11.7-14.2); RDW Standard Deviation 50.8 fL (35.1-46.3); Red Blood Cell Count 2.69 M/mm3 (3.80-5.20); White Blood Cell Count 10.49 K/mm3 (4.00-11.30)
[2020-11-13 21:24] LABS: Albumin, Blood 2.4 g/dL (3.4-5.0); Albumin/Globulin Ratio 0.5 (0.8-1.8); Bilirubin, Total 0.4 mg/dL (0.1-1.0); Bun/Creatinine Ratio 15.5 (12.0-20.0); Calcium, Blood 7.6 mg/dL (8.5-10.1); Creatinine, Blood 3.17 mg/dL (0.40-1.00); Globulin, Blood 4.8 g/dL (2.2-4.0); Potassium, Blood 3.6 mmol/L (3.5-5.5); Total Protein, Blood 7.2 g/dL (6.4-8.2)
[2020-11-13] MEDS ORDERED: METO25 PO (21:43)
[2020-11-13] MEDS ORDERED: OXYCODONE-ACET1 EAC3 PO (21:44)
--- NOTE | 2020-11-14 01:27 | NUR ---
80 YR OLD FEMLE ADMITTED TO FLOOR FROM THE ED WITH AMS AND BACK PAIN. PT FROM [facility] AND HAD DIALYSIS, BUT AMS POT PROCEDURE AND WAS SENT TO THE ED FOR EVAL. A/O X 3-4. O2 PER NC AT 3L/MIN. O2 SAS 100% AT THIS TIME. RECEIVED FENTANL IV FOR BACK PAIN, 1 UNIT OF PRBC ORDERED AND IS CURRENTLY IN THE PROCESS OF INFUSING. NO S/S ALLERGIC REATIONS. RESTING QUIETLY. CALL LIGHT IN REACH.
[2020-11-14 05:00] LABS: BASOPHILS ABSOLUTE AUTO 0.03 K/mm3 (0.00-0.23); BASOPHILS PERCENT AUTO 0 % (0-2); EOSINOPHILS ABSOLUTE AUTO 0.07 K/mm3 (0.00-0.68); EOSINOPHILS PERCENT AUTO 1 % (0-6); Hematocrit 27.1 % (33.0-51.0); Hemoglobin 8.1 g/dL (11.5-16.0); IMMATURE GRAN ABSOLUTE AUTO 0.09 K/mm3 (0.00-0.10); IMMATURE GRAN PERCENT AUTO 1 % (0-1); LYMPHOCYTES ABSOLUTE AUTO 0.66 K/mm3 (0.84-5.20); LYMPHOCYTES PERCENT AUTO 6 % (21-46); MONOCYTES ABSOLUTE AUTO 0.76 K/mm3 (0.16-1.47); MONOCYTES PERCENT AUTO 7 % (4-13); Mean Corpuscular HGB 26.5 pg (26.0-34.0); Mean Corpuscular HGB Conc 29.9 g/dL (31.5-36.5); Mean Corpuscular Volume 89 fL (80-100); Mean Platelet Volume 9.8 fL (9.1-12.4); NEUTROPHILS ABSOLUTE AUTO 8.66 K/mm3 (1.96-9.15); NEUTROPHILS PERCENT AUTO 84 % (41-73); Platelet Count 213 K/mm3 (150-400); RDW Coefficient Variation 15.8 % (11.7-14.2); Red Blood Cell Count 3.06 M/mm3 (3.80-5.20); White Blood Cell Count 10.27 K/mm3 (4.00-11.30)
[2020-11-14 05:21] LABS: Albumin, Blood 2.2 g/dL (3.4-5.0); Albumin/Globulin Ratio 0.5 (0.8-1.8); Bun/Creatinine Ratio 14.3 (12.0-20.0); Calcium, Blood 7.6 mg/dL (8.5-10.1); Creatinine, Blood 3.57 mg/dL (0.40-1.00); Globulin, Blood 4.5 g/dL (2.2-4.0); Potassium, Blood 3.5 mmol/L (3.5-5.5); Total Protein, Blood 6.7 g/dL (6.4-8.2)
--- NOTE | 2020-11-14 06:27 | NUR ---
SHIFT SUMARY AWAKE AT INTERVALS. CALLING OUT IN A PANIC. INCONT OF URINE A FEW TIMES, VOICED "BURNING" WHEN DOING SO. DR MEDINA AT BEDSIDE AND WAS NOTIFIED OF THIS. HAD ONE UNIT OF BLOOD, NO NOED ADVERSE REACTIONS. IVF OF NS AT 75 T THIS TIME. MED TELE ON. CALL LIGHT IN REACH
--- NOTE | 2020-11-14 17:03 | NUR ---
I have known Svitlana for many years and have noticed a sharp decline in the past 9 months. This morning she appeared quite weak and sleepy. She complained of pain/burning throughout our conversation. I have long suspected she can no longer properly care for herself, as I believe her chronic incontinence/forgetfulness/weakness keep her from maintainng proper vaginal hygene. She has been complaining of the same buring pain for 8 months. She is also now wheelchair bound and has a motorized chair at home. Her sister lives at [facility], but she is also quite ill and wheelchair bound. Svitlana tells me she is afraid of , but also does not want to "live this way." She believes she will get better. She in fact tells me she is hoping to be able to walk, drive, socialize like she did a few years ago. This does not seem to be realistic. I have tried for months to gently guide Svitlana to the realization that she needs help. She insists that with proper medical attention, she will improve. At times, svitlana seems mentally muddled and quite needy/child-like--begging me not to leave her side. I spent as much time as I possibly could with Svitlana throughout this day. Prayer and financial services counselor provided. I will continue to follow.
--- NOTE | 2020-11-14 17:14 | NUR ---
PT AOX1-2 AND COOPERATIVE OF CARE. PT STARTED SHIFT VERY PAINFULLY. PT WAS STATING SHE WAS HAVING BURNING AND THEN BACK PAIN. PT WAS MOANING AND CALLING OUT CONTINOUSLY UNLESS SOMEONE WAS IN THE ROOM WITH HER. PT WAS TREATED PER EMAR AND DR KIRKLAND NOTIFIED. DR KIRKLAND ADDED MEDIATIONS AND HAD MORE XRAYS TO RULE OUT ANY INJURY OR POSSIBLE CAUSE OF PAIN. PT HAD VIDALES PLACED DUE TO THE SORE IN THE NOEMI AREA AND EXCESSIVE RED IRRITATION IN GROIN AREA. PT ALSO HAD HEAT PAD APPLIED AND PAIN PATCH. PT RECIEVED DIALYSIS IN ROOM AND THEN LATER WAS ABLE TO TAKE A NAP. PT IS NOW RESTING IN BED QUIETLY AND STATES SHE IS FEELING MUCH BETTER. PT IS ABLE TO TO HELP TURN, BUT FAR ASKING FOR HELP SHE DOES NOT USE CALL LIGHT SHE JUST CALLS OUT. PT HAS BEEN HAVING SOME HIGH BPs TREATED PER EMAR. WILL CONTINUE TO MONITOR.
--- NOTE | 2020-11-14 19:18 | NUR ---
RESTING QUIETLY. HOB ELEVATED. CALL LIGHT IN REACH.
[2020-11-15 05:07] LABS: Hematocrit 26.9 % (33.0-51.0); Hemoglobin 8.2 g/dL (11.5-16.0)
[2020-11-15 05:28] LABS: Albumin, Blood 2.2 g/dL (3.4-5.0); Anion Gap 8 mmol/L (6-16); Blood Urea Nitrogen 36 mg/dL (8-24); Bun/Creatinine Ratio 12.1 (12.0-20.0); CO2, Blood 31 mmol/L (21-32); Calcium, Blood 8.2 mg/dL (8.5-10.1); Chloride, Blood 100 mmol/L (98-108); Creatinine, Blood 2.97 mg/dL (0.40-1.00); Glomerular Filtration Rate 16 (60-); Glucose, Blood 120 mg/dL (70-99); Magnesium, Blood 2.3 mg/dL (1.6-2.4); Phosphorus, Blood 4.3 mg/dL (2.5-4.9); Potassium, Blood 3.3 mmol/L (3.5-5.5); Sodium, Blood 139 mmol/L (136-145)
--- NOTE | 2020-11-15 06:15 | NUR ---
SHIFT SUMMARY HAS BEEN AWAKE AT INTERVALS WITH LOWER BACK PAIN. HAS RECEIVED ANALGESICS ORDERED - SEE MAR FOR DETAILS. GLENDYLY SMILING AND ASKING ABOUT HER LAB RESULTS. CALL LIGHT IN REACH
[2020-11-15 09:57] LABS: Hemoglobin 8.4 g/dL (11.5-16.0)
--- NOTE | 2020-11-15 17:06 | NUR ---
PT AOX3 AND COOPERATIVE OF CARE TODAY. PT DID NOT COMPLAIN OF BURING TODAY AND HAS NOT HAD TO BE TREATED MUCH FOR PAIN. SHE DID START SHIFT WANTING A PAIN MED FOR BACK PAIN AND WAS TREATED PER EMAR. PT WAS DOING WELL ENOUGH TO GET UP TO RESTROOM A ONE PERSON TO RESTROOM AND HAVE A BM. PT STATES SHE IS FEELING MUCH BETTER TODAY. PT IS RESTING WILL CONTINUE TO MONITOR CALL LIGHT IS WITHIN REACH, BUT WILL STILL CALL OUT.
[2020-11-15 17:19] LABS: Hematocrit 33.8 % (33.0-51.0); Hemoglobin 10.6 g/dL (11.5-16.0)
--- NOTE | 2020-11-15 17:44 | NUR ---
Several visits with Svitlana today. She was very sleepy each time--opened eyes to voice, greeted me, then fell back to sleep. She appears relaxed and comfortable. I will remain available.
--- NOTE | 2020-11-15 17:48 | NUR ---
THIS EXECUTIVE HOUSEKEEPER TRIED TO GET PT TO GO THROUGH AND ANSWER MRI QUESTIONS. PT STATED SHE WILL NOT DO AN MRI AND CAN DO THEM. PT SAID SHE HAS TO MUCH ANXIETY AND HER DOCTORS DO NOT ORDER THEM ANYMORE. DR KIRKLAND NOTIFIED AND DC'D MRI.
[2020-11-16 02:41] LABS: BASOPHILS ABSOLUTE AUTO 0.02 K/mm3 (0.00-0.23); BASOPHILS PERCENT AUTO 0 % (0-2); EOSINOPHILS ABSOLUTE AUTO 0.03 K/mm3 (0.00-0.68); EOSINOPHILS PERCENT AUTO 0 % (0-6); Hematocrit 29.8 % (33.0-51.0); Hemoglobin 9.2 g/dL (11.5-16.0); IMMATURE GRAN ABSOLUTE AUTO 0.06 K/mm3 (0.00-0.10); IMMATURE GRAN PERCENT AUTO 1 % (0-1); LYMPHOCYTES ABSOLUTE AUTO 0.43 K/mm3 (0.84-5.20); LYMPHOCYTES PERCENT AUTO 5 % (21-46); MONOCYTES ABSOLUTE AUTO 0.57 K/mm3 (0.16-1.47); MONOCYTES PERCENT AUTO 7 % (4-13); Mean Corpuscular HGB 27.3 pg (26.0-34.0); Mean Corpuscular HGB Conc 30.9 g/dL (31.5-36.5); Mean Corpuscular Volume 88 fL (80-100); Mean Platelet Volume 9.9 fL (9.1-12.4); NEUTROPHILS ABSOLUTE AUTO 7.44 K/mm3 (1.96-9.15); NEUTROPHILS PERCENT AUTO 87 % (41-73); Platelet Count 173 K/mm3 (150-400); RDW Coefficient Variation 16.3 % (11.7-14.2); RDW Standard Deviation 52.3 fL (35.1-46.3); Red Blood Cell Count 3.37 M/mm3 (3.80-5.20); White Blood Cell Count 8.55 K/mm3 (4.00-11.30)
[2020-11-16 02:57] LABS: Albumin, Blood 2.2 g/dL (3.4-5.0); Anion Gap 6 mmol/L (6-16); Blood Urea Nitrogen 31 mg/dL (8-24); Bun/Creatinine Ratio 11.4 (12.0-20.0); CO2, Blood 33 mmol/L (21-32); Calcium, Blood 8.2 mg/dL (8.5-10.1); Chloride, Blood 99 mmol/L (98-108); Creatinine, Blood 2.71 mg/dL (0.40-1.00); Glomerular Filtration Rate 18 (60-); Glucose, Blood 164 mg/dL (70-99); Magnesium, Blood 2.1 mg/dL (1.6-2.4); Phosphorus, Blood 3.6 mg/dL (2.5-4.9); Potassium, Blood 3.8 mmol/L (3.5-5.5); Sodium, Blood 138 mmol/L (136-145)
--- NOTE | 2020-11-16 04:56 | NUR ---
SHIFT SUMMARY PT HAS HAD NO ACUTE CHANGES THIS SHIFT, CONTIMUES C/O BACK PAIN, MEDICATED PER JAN, CONTINUED KPAD USE, UP TO CHAIR AND REPOSITIONING, C/O "BURNING AT VIDALES" SLEPT T/O THE NIGHT BUT WOKE OFTEN YELLING OUT INTO [place], STATES SHE JUST NEEDS TO KNOW STAFF IS THERE, SLEEPING AT THIS TIME, CALL LIGHT IN REACH, WILL CONT TO MONITOR UNTIL REPORT GIVEN TO DAY RN.
--- NOTE | 2020-11-16 08:09 | NUR ---
POSITIVE BLOOD CULTURES. NOTIFIED DR. KIRKLAND
--- NOTE | 2020-11-16 16:45 | NUR ---
SHIFT SUMMARY- PT IS A/O, PLESANT AND COOPERATIVE. SHE IS EATING AND DRINKING WELL. SHE HAD POSITIVE BLOOD CULTURES AND ABX WERE ORDERED. HER IV WAS PULLED AND REPLACED THIS SHIFT. SHE WORKED WITH PT THIS SHIFT AND TOLERATED WELL. SHE WAS UP TO THE CHAIR FOR MEALS. DR. PARISI WAS CONSULTED AND HE RECOMENDED RECIEVING 6 WEEKS OF IV ABX. SHE MAY NEED TO GO TO SNF TO RECIEVE HER TREATMENTS. SHE DECLINED AN MRI. DIALYSIS NURSE COLLECTED CULTURE FROM HER PERMACATH. HER VIDALES IS PATIENT AND DRAINING. HER BED IS IN THE LOW POSITION AND CALL LIGHT WITHIN REACH.
--- NOTE | 2020-11-16 17:03 | NUR ---
Svitlana was very sleepy at each attempt at visit. Prayer provided. Meaningful conversation appeared impossible. She did aknowledge she should not go back to living alone. Licensed Nuclear Operator services will remain available.
[2020-11-17 04:56] LABS: BASOPHILS ABSOLUTE AUTO 0.03 K/mm3 (0.00-0.23); BASOPHILS PERCENT AUTO 0 % (0-2); EOSINOPHILS ABSOLUTE AUTO 0.27 K/mm3 (0.00-0.68); EOSINOPHILS PERCENT AUTO 4 % (0-6); Hematocrit 29.5 % (33.0-51.0); Hemoglobin 8.9 g/dL (11.5-16.0); IMMATURE GRAN ABSOLUTE AUTO 0.07 K/mm3 (0.00-0.10); IMMATURE GRAN PERCENT AUTO 1 % (0-1); LYMPHOCYTES ABSOLUTE AUTO 0.73 K/mm3 (0.84-5.20); LYMPHOCYTES PERCENT AUTO 10 % (21-46); MONOCYTES ABSOLUTE AUTO 0.86 K/mm3 (0.16-1.47); MONOCYTES PERCENT AUTO 11 % (4-13); Mean Corpuscular HGB 27.2 pg (26.0-34.0); Mean Corpuscular HGB Conc 30.2 g/dL (31.5-36.5); Mean Corpuscular Volume 90 fL (80-100); Mean Platelet Volume 10.1 fL (9.1-12.4); NEUTROPHILS ABSOLUTE AUTO 5.75 K/mm3 (1.96-9.15); NEUTROPHILS PERCENT AUTO 75 % (41-73); Platelet Count 150 K/mm3 (150-400); RDW Coefficient Variation 15.9 % (11.7-14.2); RDW Standard Deviation 52.3 fL (35.1-46.3); Red Blood Cell Count 3.27 M/mm3 (3.80-5.20); White Blood Cell Count 7.71 K/mm3 (4.00-11.30)
--- NOTE | 2020-11-17 05:17 | NUR ---
SHIFT SUMMARY NO ACUTE CHANGES THIS SHIFT, MEDICATED PER MAR FOR PAIN, REPOS FREQ FOR COMFORT, SLEEPING AT THIS TIME, CALL LIGHT IN REACH, WILL CONT TO MONITOR UNTIL REPORT GIVEN TO DAY RN.
[2020-11-17 05:18] LABS: Albumin, Blood 2.2 g/dL (3.4-5.0); Anion Gap 7 mmol/L (6-16); Blood Urea Nitrogen 48 mg/dL (8-24); Bun/Creatinine Ratio 13.4 (12.0-20.0); CO2, Blood 31 mmol/L (21-32); Chloride, Blood 99 mmol/L (98-108); Creatinine, Blood 3.57 mg/dL (0.40-1.00); Glomerular Filtration Rate 13 (60-); Glucose, Blood 113 mg/dL (70-99); Magnesium, Blood 2.4 mg/dL (1.6-2.4); Phosphorus, Blood 4.6 mg/dL (2.5-4.9); Potassium, Blood 3.7 mmol/L (3.5-5.5); Sodium, Blood 137 mmol/L (136-145); Vancomycin, Random 19.3 ug/mL
--- NOTE | 2020-11-17 11:49 | NUR ---
RECIEVED A CALL FROM TELE PT HR DROPPING DOWN TO THE LOW 40'S. CALLED DIALYSIS PT IS ASYMPTOMATIC NO C/O CP NO SOB PT RECIEVED METOPROLOL AND CLONIDINE PRIOR TO GOING TO DIALYSIS, HR 74 AT THE TIME OF ADINISTRATION. CALLED DR ROBERTA PETERSON IS AWARE AND WILL PUT HOLDING PARAMETERS ON HR AFFECTING MEDS. WILL CTM.
--- NOTE | 2020-11-17 17:30 | NUR ---
CALLED CONSULT TO DR CARLSON- DR CAPONE ENVIRONMENTAL CONSERVATION OFFICER ON THE WEEKENDS. CALLED DR MEDINA FOR DIRECTION. DR SAHU IS ON FOR GEN SURGERY THIS WEEKEND. DR MEDINA WILL CALL BACK WITH DECISION ON CONSULT.
--- NOTE | 2020-11-17 19:00 | NUR ---
ASSUMED CARE RECEIVED REPORT FROM OTF LI. PT RESTING COMFORTABLY, NO ACUTE NEEDS OR DISTRESS NOTED AT THIS TIME. RESPS E/U. CALL LIGHT, POSSESSIONS IN REACH, PT ATTEMPTING FINISH HER DINNER TRAY. KASIA.
--- NOTE | 2020-11-17 20:19 | NUR ---
SHIFT SUMMARY- PT ALERT AND ORIENTED X3. PT HAS CHRONIC PAIN AND HAS BEEN MEDICATED PRN FOR IT T/O THE DAY. HEATING PAD IS IN PLACE TO HELP WITH HER PAIN. PT HAD DIALYSIS TODAY. DR MEDINA PLACED A CONSULT REQUEST FOR PERMACATH REMOVAL AND REPLACEMENT TO DR CARLSON HE IS NOT HEARSE DRIVER UNTIL FRIDAY. SPOKE TO DR MEDINA ABOUT THIS AND HE MAY PLACE A GENERAL SURGERY CONSULT BUT STATED WAIT UNTIL HE CALLS BACK. NO CALL HAS BEEN RECIEVED AT THIS TIME. PASSED ON TO NIGHT OTF LARKIN IN BEDSIDE REPORT.
[2020-11-18 00:07] LABS: HBSAG SCREEN Negative (Negative); HEP A AB, IGM Negative (Negative); HEP B CORE AB, IGM Negative (Negative); HEP C VIRUS AB <0.1 (0.0-0.9)
--- NOTE | 2020-11-18 01:57 | NUR ---
SPOKE TO DR. CASTILLO REGARDING PT'S UNRELIEVED PAIN. NEW ORDERS RECEIVED. CONTINUE TO MONITOR.
--- NOTE | 2020-11-18 04:11 | NUR ---
SHIFT SUMMARY PT ASLEEP, NO S/S ACUTE DISTRESS NOTED. VS REVIEWED, WNL, O2 SATS STABLE ON 2L/NC. BP'S STABLE. PT HAS BEEN INCREASINGLY PAINFUL T/O NIGHT, HEAT PACK APPLIED AND PT REPOSITIONED NEEDED. PAIN MANAGED WITH MEDS PER EMAR. PT DENIES PAIN OR NEEDS AT THIS TIME. CALL LIGHT, POSSESSIONS, IN REACH, BED IN LOW POSITION WITH ALARMS ON. CONTINUE TO MONITOR UNTIL REPORT GIVEN TO DAY RN.
[2020-11-18 05:26] LABS: BASOPHILS ABSOLUTE AUTO 0.04 K/mm3 (0.00-0.23); BASOPHILS PERCENT AUTO 0 % (0-2); EOSINOPHILS ABSOLUTE AUTO 0.43 K/mm3 (0.00-0.68); EOSINOPHILS PERCENT AUTO 4 % (0-6); Hematocrit 32.1 % (33.0-51.0); Hemoglobin 9.6 g/dL (11.5-16.0); IMMATURE GRAN ABSOLUTE AUTO 0.06 K/mm3 (0.00-0.10); IMMATURE GRAN PERCENT AUTO 1 % (0-1); LYMPHOCYTES ABSOLUTE AUTO 0.78 K/mm3 (0.84-5.20); LYMPHOCYTES PERCENT AUTO 8 % (21-46); MONOCYTES ABSOLUTE AUTO 0.96 K/mm3 (0.16-1.47); MONOCYTES PERCENT AUTO 10 % (4-13); Mean Corpuscular HGB Conc 29.9 g/dL (31.5-36.5); Mean Corpuscular Volume 90 fL (80-100); Mean Platelet Volume 10.9 fL (9.1-12.4); NEUTROPHILS ABSOLUTE AUTO 7.76 K/mm3 (1.96-9.15); NEUTROPHILS PERCENT AUTO 77 % (41-73); Platelet Count 179 K/mm3 (150-400); RDW Coefficient Variation 15.5 % (11.7-14.2); RDW Standard Deviation 51.3 fL (35.1-46.3); Red Blood Cell Count 3.55 M/mm3 (3.80-5.20); White Blood Cell Count 10.03 K/mm3 (4.00-11.30)
[2020-11-18 05:58] LABS: Albumin, Blood 2.2 g/dL (3.4-5.0); Anion Gap 6 mmol/L (6-16); Blood Urea Nitrogen 29 mg/dL (8-24); CO2, Blood 34 mmol/L (21-32); Calcium, Blood 8.1 mg/dL (8.5-10.1); Chloride, Blood 99 mmol/L (98-108); Creatinine, Blood 2.64 mg/dL (0.40-1.00); Glomerular Filtration Rate 18 (60-); Glucose, Blood 93 mg/dL (70-99); Phosphorus, Blood 3.8 mg/dL (2.5-4.9); Potassium, Blood 3.5 mmol/L (3.5-5.5); Sodium, Blood 139 mmol/L (136-145)
--- NOTE | 2020-11-18 15:57 | NUR ---
SHIFT SUMMARY PT AWAKE AT START OF SHIFT, LYING HF. VIDALES TO GRAVITY; PATENT. PT REPORTED DR MEDINA JUST IN AND HAD TOLD HER SHE WOULDN'T BE HAVING DIALYSIS UNTIL FRIDAY. HOWEVER, SWEET PICKLED FRUIT MAKER CALLED A FEW MINUTES LATER TO REPORT THAT PT WOULD BE HAVING DIALYSIS THIS AM AT 0900, AND WOULD NEED TO BE BROUGHT DOWN. PT HAS BEEN FORGETFUL MOST OF THE DAY AND GETS INFORMATION MIXED UP ABOUT WHAT SHE IS TO BE DOING. MEDICATED FOR C/O PAIN PER EMAR. PT HAS BEEN REPOSITIONED THRU OUT THE DAY. P/T HERE TO WORK WITH PT THIS AFTERNOON. PT REFUSED. P/T ATTEMPTED SEVERAL TIMES TO GET PT TO PARTICIPATE, BUT PT REFUSED AND WANTED TO SLEEP. LATER, PT WOKE UP AND WANTED TO GET UP TO CHAIR AND WANTED P/T TO ASSIST. PT INFORMED THAT P/T WAS HERE EARLIER AND UNABLE TO COME BACK. PT ALSO C/O BURNING TO GAVINO AREA THRU OUT THE DAY. GAVINO AREA VERY EXCORIATED AND RED. DR GRANADOS NOTIFIED; NEW ORDERS RECEIVED. NYSTATIN APPLIED PER EMAR. PT RESTING QUIETLY IN BED AT THIS TIME, POSITIONED FOR COMFORT. DENIED FURTHER NEEDS. CALL LT IN HAND.
--- NOTE | 2020-11-18 19:00 | NUR ---
ASSUMED CARE PT LYING IN BED, NO ACUTE NEEDS NOTED, PLEASANT. RESPS E/U. DENIES NEEDS. CALL LIGHT, POSSESSIONS IN REACH, BED IN LOW POSITION WITH ALARMS ON. CONTINUE TO MONITOR.
--- NOTE | 2020-11-19 05:00 | NUR ---
SHIFT SUMMARY PT RESTING COMFORTABLY, NO S/S ACUTE DISTRESS NOTED. WAS MONITORED EVERY 1-2 HOURS WITH NEEDS MET. PAIN MANAGED WITH MEDS PER EMAR, WITH SHORT PERIODS OF RELIEF. PT HAS BEEN ABLE TO SLEEP SOME T/O NIGHT. MINIMAL C/O "BURNING" PAIN TO GAVINO-AREA, KEPT CLEAN AND DRY. VS REVIEWED, PT HYPERTENSIVE, MEDICATED PER EMAR. OTHER VS WNL. VIDALES CATH IN PLACE, PATENT AND DRAINING RONEL YELLOW URINE; TUBING FREE OF KINKS. NO CARDIAC EVENTS REPORTED T/O NIGHT. CALL LIGHT, POSSESSIONS IN REACH, BED IN LOW POSITION WITH ALARMS ON. CONTINUE TO MONITOR UNTIL REPORT GIVEN TO DAY RN.
[2020-11-19 05:24] LABS: Hematocrit 33.9 % (33.0-51.0); Hemoglobin 10.2 g/dL (11.5-16.0)
[2020-11-19 05:56] LABS: Albumin, Blood 2.3 g/dL (3.4-5.0); Anion Gap 7 mmol/L (6-16); Blood Urea Nitrogen 21 mg/dL (8-24); Bun/Creatinine Ratio 8.5 (12.0-20.0); CO2, Blood 33 mmol/L (21-32); Calcium, Blood 8.4 mg/dL (8.5-10.1); Chloride, Blood 98 mmol/L (98-108); Creatinine, Blood 2.48 mg/dL (0.40-1.00); Glomerular Filtration Rate 20 (60-); Glucose, Blood 106 mg/dL (70-99); Magnesium, Blood 2.1 mg/dL (1.6-2.4); Phosphorus, Blood 3.5 mg/dL (2.5-4.9); Potassium, Blood 3.7 mmol/L (3.5-5.5); Sodium, Blood 138 mmol/L (136-145)
[2020-11-19 10:02] LABS: Source, Urine Catheter
[2020-11-19 10:09] LABS: Bilirubin, Urine Neg (Neg); Blood, Urine 4+ (Neg); Glucose Qualitative, Urine 1+ (Neg); Ketones, Urine Neg (Neg); Leukocyte Esterase, Urine 1+ (Neg); Nitrite, Urine Neg (Neg); Protein, Urine 4+ (Neg); Specific Gravity, Urine 1.015 (1.003-1.022); Urobilinogen, Urine NORM (Normal)
[2020-11-19 10:14] LABS: Color, Urine Yellow (P-Yellow)
[2020-11-19 10:15] LABS: Appearance, Urine Clear (Clear)
[2020-11-19 10:18] LABS: Bacteria Few /hpf; Squamous Epithelial Cells Rare /hpf (Few)
--- NOTE | 2020-11-19 18:51 | NUR ---
SHIFT SUMMARY PT RESTING QUIETLY DURING SHIFT REPORT, DENIED NEEDS AT THAT TIME. PT SOON CALLED FOR PAIN MEDICATION AND REPOSITIONING. PT VERY NEEDY, CALLING FREQUENTLY FOR LITTLE THINGS. MEAT SELECTOR ATTEMPTED TO ENCOURAGE PT TO DO SOME THINGS FOR HERSELF TO HELP WITH INDEPENDENCE PT WANTS TO GO BACK HOME. PT C/O BURNING WHEN "TRYING TO PEE", BUT PT HAD A VIDALES CATH. DR GRANADOS NOTIFIED OF COMPLAINT. DR GRANADOS INSTRUCTED THAT DR MEDINA BE NOTIFIED FOR PYRIDIUM AND CONTINUED NEED OF VIDLAES. DR MEDINA CALLED AND DECLINED PYRIDIUM D/T BEING CONTRA-INDICATED. DR MEDINA ALSO ORDERED VIDALES TO BE D/C'D AND UA W/CX TO BE SENT. ALL DONE PER ORDERS. [facility] RN, ALYSA, THEN CALLED DR MEDINA TO CLARIFY CONSULT ORDER FOR DR CARLSON, DR CARLSON DOES NOT WORK WEEKENDS. CLARIFICATION OBTAINED AND CONSULT WILL BE CALLED IN EARLY AM FOR DR CARLSON TO REMOVE OLD PERMA CATH AND PLACE A NEW PERMA CATH IN 48 HR. REPORT GIVEN TO ONCOMIMG NOC RN REGARDING DETAILS. LATER IN AM TELE MX CALLED TO REPORT PT'S HR IN THE 130'S TO 140'S AND PT IN A-FLUTTER. DR GRANADOS NOTIFIED AND NEW ORDERS RECEIVED. PT'S HR SEEMED TO COME DOWN A BIT AND NO FURTHER CALLS FROM TELE MX UNTIL THIS AFTERNOON. TELE MX CALLED TO REPORT HR BACK UP TO 130'S - 140'S SUSTAINING. DR GRANADOS NOTIFIED AGAIN AND NEW ORDERS RECEIVED. DR GRANADOS THEN PLACED ORDER FOR CARDIAZEM IVP. WHEN CHKING VS'S BEFORE GIVING, PT CONVERTED BACK TO SR IN THE LOW 90'S. DR GRANADOS UPDATED, CARDIAZEM HELD, AND PT HAS REMAINED IN NSR. VISITOR TO THIS AFTERNOON; PT ENCOURAGED. PT RESTING QUIETLY AT THIS TIME. CALL LT IN REACH.
--- NOTE | 2020-11-19 19:00 | NUR ---
ASSUMED CARE RECEIVED REPORT FROM OTF URBINA. PT ASLEEP, NO S/S ACUTE DISTRESS NOTED, RESPS E/U. NO ACUTE NEEDS ASSESSED AT THIS TIME. CALL LIGHT, POSSESSIONS IN REACH, BED IN LOW POSITION WITH ALARMS ON. CONTINUE TO MONITOR.
[2020-11-20 05:17] LABS: Hematocrit 31.9 % (33.0-51.0); Hemoglobin 9.8 g/dL (11.5-16.0)
[2020-11-20 05:42] LABS: Albumin, Blood 2.3 g/dL (3.4-5.0); Anion Gap 10 mmol/L (6-16); Blood Urea Nitrogen 32 mg/dL (8-24); Bun/Creatinine Ratio 9.8 (12.0-20.0); CO2, Blood 30 mmol/L (21-32); Calcium, Blood 8.4 mg/dL (8.5-10.1); Chloride, Blood 99 mmol/L (98-108); Creatinine, Blood 3.28 mg/dL (0.40-1.00); Glomerular Filtration Rate 14 (60-); Glucose, Blood 88 mg/dL (70-99); Magnesium, Blood 2.4 mg/dL (1.6-2.4); Phosphorus, Blood 4.8 mg/dL (2.5-4.9); Potassium, Blood 3.7 mmol/L (3.5-5.5); Sodium, Blood 139 mmol/L (136-145)
--- NOTE | 2020-11-20 06:23 | NUR ---
SHIFT SUMMARY PT RESTING COMFORTABLY, NO S/S ACUTE DISTRESS NOTED, WAS MONITORED EVERY 1-2 HOURS WITH NEEDS MET. VS REVIEWED, WNL, POST TX FOR HTN. O2 SATS STABLE ON 2L/NC. PAIN MANAGED WITH MEDS PER EMAR, WITH MODERATE RELIEF; REPOSITIONED TOLERATED. CALL PLACED TO [facility]ART CENTER ANSWERING SERVICE, SPOKE TO AMY. STARCH CRAB AT BEDSIDE AT THIS TIME ASSISTING PT. DENIES FURTHER NEEDS. CALL LIGHT, POSSESSIONS IN REACH. CONTINUE TO MONITOR UNTIL REPORT GIVEN TO DAY RN.
--- NOTE | 2020-11-20 13:43 | NUR ---
L UPPER CHEST PERMACATH REMOVED BY DR CARLSON. PRESSURE HELD OVER PUCTURE AREA APPROX 5 MIN. -BLEEDING OR SWELLING. PT BROUGHT BACK TO RM 345. FULL REPORT GIVEN TO OTF.
--- NOTE | 2020-11-20 16:28 | NUR ---
Svitlana was tired having just returned from proceedure. she complained of "unbearable back pain." I informed RN. she also complained of "it burning" when she urinates. "I want to scream it's so bad!" I provided calm assurance of care and attention. Prayer said at conclusion of visit. Then she drifted into sleep.I will continue to see Svitlana as schedule permits.
--- NOTE | 2020-11-20 19:26 | NUR ---
SHIFT SUMMARY PT IS AOX4. PT MEDICATED FOR PAIN X1 AND LIDOCAINE PATCH IN PLACE. PT DENIES N/V, SOB. PT IS ONE PERSON ASSIST FOR TRANSFERS. PT WORKED WITH PT/OT TODAY. PT RECEIVED DIALYSIS TODAY. PERMACATH REMOVED AROUND MIDDAY TODAY. PT LIVES AT [facility]. PT IS IN BED, CALL LIGHT IN REACH, BED IN LOW POSITION.
--- NOTE | 2020-11-21 03:56 | NUR ---
SHIFT SUMMARY ASSUMED CARE OF PT AT 1900. PT IS A/OX4. HEART SOUNDS REGULAR. TELE CONVERTED TO AFLUTTER RATE OF 130 @ 1930. THEN THEIR RATE INCREASED TO 150, HOSPITALIST NOTIFIED AND ORDERED LOPRESSOR. PT BP DECREASED TO 130 THEN AT 0100 PT REVERED BACK TO SINUS WITH PAC @ 80, PT DENIED ANY NEW SYMPTOMS.LUNG SOUNDS CLEAR. PT HAD LARGE BM THIS SHIFT. PT WAS C/I OF URINE, PT HAS PAINFUL BURNING URINATION, PT YELLS OUTLOAD WHEN SHE PEES. GAVINO AREA RED ALONG WITH BUTTOCK. PT HAD A HARD TIME SLEEPING LAST NIGHT DUE TO BACK PAIN, MEDICATED PER EMAR WITHOUT MUCH RELEIF. PT ALSO USED KPAD. PT IS UP IN CHAIR @ 0400 DRINKING COFFEE. CALL LIGHT IN REACH, CHAIR ALARM ON.
[2020-11-21 05:26] LABS: Hematocrit 34.2 % (33.0-51.0); Hemoglobin 10.2 g/dL (11.5-16.0)
[2020-11-21 05:52] LABS: Albumin, Blood 2.5 g/dL (3.4-5.0); Anion Gap 8 mmol/L (6-16); Blood Urea Nitrogen 21 mg/dL (8-24); Bun/Creatinine Ratio 7.8 (12.0-20.0); CO2, Blood 30 mmol/L (21-32); Calcium, Blood 8.5 mg/dL (8.5-10.1); Chloride, Blood 100 mmol/L (98-108); Glomerular Filtration Rate 18 (60-); Glucose, Blood 104 mg/dL (70-99); Magnesium, Blood 2.3 mg/dL (1.6-2.4); Phosphorus, Blood 4.2 mg/dL (2.5-4.9); Potassium, Blood 3.8 mmol/L (3.5-5.5); Sodium, Blood 138 mmol/L (136-145)
--- NOTE | 2020-11-21 16:33 | NUR ---
SHIFT SUMMARY PATIENT MEDICATED X1 FOR PAIN. DENIES NAUSEA AND SHORTNESS OF BREATH. PATIENT MAINTAINING OXYGEN SATURATION ABOVE 95% ON 1L/NC. PATIENT TRIALED OFF OXYGEN BUT DROPS INTO LOW 80'S WITHOUT OXYGEN DURING ACTIVITY. UP SBA W/FWW TO BATHROOM. WORKED WITH PT/OT TODAY. PLEASANT AND COOPERATIVE WITH CARE.
--- NOTE | 2020-11-22 01:36 | NUR ---
80 year old Female with ESRD on dialysis continues on antibiotics to treat positive blood cultures UTI. She had lt chestwall perm cath removed 11/20/20 & culture of cath tip shows no growth yet. She has infectious disease consult will need PICC line placed for 6 weeks antibiotics. She is very hard of hearing has one hearing aide. Calls approp for assist to bathroom. CO low back & bladder pain. Medicated x 1 with good relief.
[2020-11-22 04:53] LABS: Hematocrit 31.1 % (33.0-51.0); Hemoglobin 9.4 g/dL (11.5-16.0)
[2020-11-22 05:13] LABS: Albumin, Blood 2.3 g/dL (3.4-5.0); Anion Gap 8 mmol/L (6-16); Blood Urea Nitrogen 30 mg/dL (8-24); Bun/Creatinine Ratio 8.5 (12.0-20.0); CO2, Blood 29 mmol/L (21-32); Calcium, Blood 8.3 mg/dL (8.5-10.1); Chloride, Blood 103 mmol/L (98-108); Creatinine, Blood 3.54 mg/dL (0.40-1.00); Glomerular Filtration Rate 13 (60-); Glucose, Blood 99 mg/dL (70-99); Magnesium, Blood 2.3 mg/dL (1.6-2.4); Phosphorus, Blood 4.8 mg/dL (2.5-4.9); Potassium, Blood 3.9 mmol/L (3.5-5.5); Sodium, Blood 140 mmol/L (136-145)
--- NOTE | 2020-11-22 17:30 | NUR ---
Spiritual care note: Svitlana appears more mentally clear today. She told e about her up-coming move to a higher level of care at [facility]. She denied telling staff that she has caregivers (She does not). She is still frustrated about her "constant pain" in her back. She also complained again about pain when she urinates. "I scream in pain everytime I have to pee." Svitlana enjoys prayer and spiritual direction. Both provided. She states she is not ready to , but admits her life is getting "really hard." I will continue to provide child and family counselor and prayer and attempt to explore her fear of .
--- NOTE | 2020-11-22 18:09 | NUR ---
SHIFT SUMMARY PATIENT MEDICATED X1 FOR PAIN, DENIES NAUSEA AND SHORTNESS OF BREATH. PATIETN UP IN CHAIR ALL DAY, UP TO BR SBA W/FWW. WORKED WITH PT/OT. PATIENT ENCOURAGED TO SHOWER BY SEVERAL STAFF TODAY BUT CONTINUES TO REFUSE. DR. CARLSON'S SCHEDULE FULL TODAY, PROBABLE PERMACATH PLACEMENT TOMORROW. EATING AD DRINKING WELL.
--- NOTE | 2020-11-23 00:42 | NUR ---
11/22/20 1945 PT RESTING COMFORTABLY BEDSIDE LOUNGE CHAIR; ALERT AND ORIENTED X 3; CHAIR ALARM APPLIED FOR SAFETY. 11/23/20 0001 PT NPO FOR POSSIBLE SURGICAL INTERVENTION TODAY; BED ALARM APPLIED.
--- NOTE | 2020-11-23 03:12 | NUR ---
SHIFT SUMMARY: 80 Y/O FEMALE HAD RESTLESS NIGHT ALL SHIFT AT TIMES WITH C/O BACK PAIN RATED 7/10 WITH NORCO 5/325MG X 1 AND ULTRAM 50MG PO GIVEN WITH MODERATE RELIEF FELT; PT ALSO REPOSITIONED MULTIPLE TIMES BY NURSING STAFF; PT IS ALERT AND ORIENTED X 3, ABLE TO FOLLOW SIMPLE VERBAL COMMANDS; PTS LEFT UPPER CHEST OLD PERMACATH SITE WELL APPROXIMATED AND SCABBED OVER (THIS NURSE REMOVED BANDAID) AND OPEN TO AIR; TELEMETRY REFLECTS NSR PER JAYNA--ROTOR ASSEMBLER; BED ALARM APPLIED FOR SAFETY, BED LOW POSITION WITH CALL LIGHT AT SIDE.
[2020-11-23 05:12] LABS: Hematocrit 32.6 % (33.0-51.0); Hemoglobin 9.4 g/dL (11.5-16.0)
[2020-11-23 05:51] LABS: Albumin, Blood 2.3 g/dL (3.4-5.0); Anion Gap 11 mmol/L (6-16); Blood Urea Nitrogen 38 mg/dL (8-24); Bun/Creatinine Ratio 9.5 (12.0-20.0); CO2, Blood 26 mmol/L (21-32); Calcium, Blood 8.3 mg/dL (8.5-10.1); Chloride, Blood 102 mmol/L (98-108); Creatinine, Blood 3.98 mg/dL (0.40-1.00); Glomerular Filtration Rate 12 (60-); Glucose, Blood 89 mg/dL (70-99); Magnesium, Blood 2.4 mg/dL (1.6-2.4); Phosphorus, Blood 5.6 mg/dL (2.5-4.9); Potassium, Blood 4.1 mmol/L (3.5-5.5); Sodium, Blood 139 mmol/L (136-145)
--- NOTE | 2020-11-23 07:47 | NUR ---
Patient gave permission to give care 11/23/20
--- NOTE | 2020-11-23 16:48 | NUR ---
BRADYCARDIA HADOOP ARCHITECT REPORTED THAT PT HAS STARTED TO BETY DOWN INTO THE HIGH 40S. MANUAL BP TAKEN AT [address] GARCIA & DR. MEDINA NOTIFIED. PT DENIES DIZZINESS OR SLEEPINESS. TELE IN PLACE FOR FURTHER MONITORING.
--- NOTE | 2020-11-23 17:33 | NUR ---
SHIFT SUMMARY PT C/O BACK PAIN T/O SHIFT. LITTLE RELIEF FROM MEDS. PT UP IN CHAIR T/O SHIFT. PT STATES BEING UPRIGHT HELPS HER BACK. HEAT PAD IN PLACE FOR PAIN RELIEF TO BACK. PT REPORTS LOOSE STOOLS. PT STATES SHE THINKS "ITS THE ANTIBIOTICS". AMBULATING WELL IN ROOM WITH MINIMAL ASSIST. PT CURRENTLY SINUS BETY WITH A RATE AT 47 PER FISH TENDER. MDS AWARE OF BRADYCARDIA. SEE PREVIOUS NOTE. POSITIVE BLOOD CULTURES DELAYED PERMACATH PLACEMENT. LIKELY TO OCCUR ON FRIDAY BY DR. CARLSON. NO OTHER ACUTE CHANGES IN PT ASSESSMENT AT THIS TIME. VS REVIEWED. PT UP IN CHAIR AWAITING DINNER. CALL LIGHT IN REACH.
[2020-11-24 06:12] LABS: Hematocrit 31.5 % (33.0-51.0); Hemoglobin 9.3 g/dL (11.5-16.0)
[2020-11-24 06:23] LABS: Albumin, Blood 2.6 g/dL (3.4-5.0); Anion Gap 10 mmol/L (6-16); Blood Urea Nitrogen 39 mg/dL (8-24); Bun/Creatinine Ratio 9.2 (12.0-20.0); CO2, Blood 26 mmol/L (21-32); Calcium, Blood 8.3 mg/dL (8.5-10.1); Chloride, Blood 102 mmol/L (98-108); Creatinine, Blood 4.25 mg/dL (0.40-1.00); Glomerular Filtration Rate 11 (60-); Glucose, Blood 123 mg/dL (70-99); Magnesium, Blood 2.3 mg/dL (1.6-2.4); Phosphorus, Blood 5.5 mg/dL (2.5-4.9); Potassium, Blood 4.5 mmol/L (3.5-5.5); Sodium, Blood 138 mmol/L (136-145)
--- NOTE | 2020-11-24 07:51 | NUR ---
11/24/20 0615 SITTING UP IN CHAIR MOST OF POLY OPERATOR. WHEN ASSISTED TO BED SHE STATES IT IS TOO UNCOMFORTABLE AND HAS TO GET UP IN CHAIR. BED ALARM ON FOR SAFETY. HEART RATE BETTER THIS AM.
--- NOTE | 2020-11-24 08:00 | NUR ---
MEDS & HR DR. MEDINA CALLED ABOUT HR BEING IN AT 60 THIS AM AND YESRTERDAY'S BRADYCARDIA. DR. MEDINA ORDERED TO CHANGE PARAMETERS ON CLONIDINE AND METOPROLOL TO "HOLD FOR LESS THAN HR OF 50". MEDS GIVEN DIRECTED BY DR. MEDINA.
--- NOTE | 2020-11-24 09:47 | NUR ---
PT REFUSING DIALYSIS TODAY PT REFUSED DIALYSIS TODAY. PT STATES USING HER FISTUAL CAUSES TOO MUCH PAIN AND SHE WILL WAIT UNTIL SHE GETS HER PERMACATH. DIAYLSIS NURSES PRESENT FOR REFUSAL. PT BACK IN CHAIR IN ROOM. CALL LIGHT IN REACH.
--- NOTE | 2020-11-24 16:49 | NUR ---
SHIFT SUMMARY PT UP IN CHAIR MOST OF THE DAY FOR COMFORT. WARM COMPRESS TO PTS BACK TO HELP WITH PAIN RELIEF. PT REFUSED TO HAVE HER FISTUAL USED FOR DIAYLSIS TODAY. PLAN FOR POSSIBLE PERMACATH PLACEMENT TOMORROW AND THEN DIALYSIS AFTERWARDS. PT HAS BEEN HYPERTENSIVE T/O SHIFT. TREATED PER EMAR. DR. EVANGELISTA NOTIFIED OF MULTIPLE LOOSE STOOLS. PROBIOTIC ADDED TO MEDICATION REGIMEN. HR IN THE LOW 60S THIS AFTERNOON WITH VITALS. VS REVIEWED. PREVENTATIVE FOAM CHANGED ON COCCYX. NO OTHER ACUTE CHANGES IN PT ASSESSMENT AT THIS TIME. PT UP IN CHAIR TALKING WITH FAMILY ON THE PHONE CURRENTLY.
[2020-11-25 05:11] LABS: BASOPHILS ABSOLUTE AUTO 0.05 K/mm3 (0.00-0.23); BASOPHILS PERCENT AUTO 1 % (0-2); EOSINOPHILS ABSOLUTE AUTO 0.43 K/mm3 (0.00-0.68); EOSINOPHILS PERCENT AUTO 6 % (0-6); Hematocrit 32.5 % (33.0-51.0); Hemoglobin 9.4 g/dL (11.5-16.0); IMMATURE GRAN ABSOLUTE AUTO 0.04 K/mm3 (0.00-0.10); IMMATURE GRAN PERCENT AUTO 1 % (0-1); LYMPHOCYTES ABSOLUTE AUTO 0.81 K/mm3 (0.84-5.20); LYMPHOCYTES PERCENT AUTO 10 % (21-46); MONOCYTES ABSOLUTE AUTO 0.69 K/mm3 (0.16-1.47); MONOCYTES PERCENT AUTO 9 % (4-13); Mean Corpuscular HGB Conc 28.9 g/dL (31.5-36.5); Mean Corpuscular Volume 93 fL (80-100); Mean Platelet Volume 10.1 fL (9.1-12.4); NEUTROPHILS ABSOLUTE AUTO 5.78 K/mm3 (1.96-9.15); NEUTROPHILS PERCENT AUTO 74 % (41-73); Platelet Count 231 K/mm3 (150-400); RDW Coefficient Variation 16.3 % (11.7-14.2); RDW Standard Deviation 55.3 fL (35.1-46.3); Red Blood Cell Count 3.48 M/mm3 (3.80-5.20)
[2020-11-25 05:33] LABS: Albumin, Blood 2.4 g/dL (3.4-5.0); Anion Gap 8 mmol/L (6-16); Blood Urea Nitrogen 40 mg/dL (8-24); Bun/Creatinine Ratio 9.1 (12.0-20.0); CO2, Blood 25 mmol/L (21-32); Calcium, Blood 8.3 mg/dL (8.5-10.1); Chloride, Blood 104 mmol/L (98-108); Creatinine, Blood 4.38 mg/dL (0.40-1.00); Glomerular Filtration Rate 10 (60-); Glucose, Blood 87 mg/dL (70-99); Magnesium, Blood 2.4 mg/dL (1.6-2.4); Potassium, Blood 4.8 mmol/L (3.5-5.5); Sodium, Blood 137 mmol/L (136-145)
--- NOTE | 2020-11-25 18:40 | NUR ---
SHIFT SUMMARY PT UP IN CHAIR SINCE BREAKFAST. STATES SHE DOESN'T LIKE TO LAY DOWN BECAUSE IT IS SO PAINFUL TO HER BACK. WAS NPO THIS MORNING FOR POSSIBLE PERMCATH PLACEMENT. NOW TENTATIVE PLAN FOR FRIDAY MORNING. DR. MEDINA AND BOUBACAR IN DIALYSIS IS AWARE. 1 PERSON ASSIST USING FWW. MEDICATED FOR PAIN REGULARLY.
--- NOTE | 2020-11-26 04:13 | NUR ---
SOIL SCIENCE TEACHER SUMMARY Patient much less animated about her pain last night. Medicated at 2330 with 7.5 percocet, the patient agreed to get out of chair around 2400 and get in bed. After being situated on left side and receiving education regarding pressure on her coccyx from always sitting in chair, patient verbalized understanding. Foam dressing over gluteal fold for 1" area that appears like a split or cut right in center. Lower perigluteal area has reddened almost maroon color circular area that looks like old allergic skin reaction
[2020-11-26 04:57] LABS: BASOPHILS ABSOLUTE AUTO 0.07 K/mm3 (0.00-0.23); BASOPHILS PERCENT AUTO 1 % (0-2); EOSINOPHILS ABSOLUTE AUTO 0.39 K/mm3 (0.00-0.68); EOSINOPHILS PERCENT AUTO 5 % (0-6); Hematocrit 32.4 % (33.0-51.0); Hemoglobin 9.4 g/dL (11.5-16.0); IMMATURE GRAN ABSOLUTE AUTO 0.03 K/mm3 (0.00-0.10); IMMATURE GRAN PERCENT AUTO 0 % (0-1); LYMPHOCYTES ABSOLUTE AUTO 0.82 K/mm3 (0.84-5.20); LYMPHOCYTES PERCENT AUTO 11 % (21-46); MONOCYTES ABSOLUTE AUTO 0.73 K/mm3 (0.16-1.47); MONOCYTES PERCENT AUTO 10 % (4-13); Mean Corpuscular HGB 27.1 pg (26.0-34.0); Mean Corpuscular Volume 93 fL (80-100); Mean Platelet Volume 10.3 fL (9.1-12.4); NEUTROPHILS ABSOLUTE AUTO 5.59 K/mm3 (1.96-9.15); NEUTROPHILS PERCENT AUTO 73 % (41-73); Platelet Count 239 K/mm3 (150-400); RDW Coefficient Variation 16.4 % (11.7-14.2); RDW Standard Deviation 55.5 fL (35.1-46.3); Red Blood Cell Count 3.47 M/mm3 (3.80-5.20); White Blood Cell Count 7.63 K/mm3 (4.00-11.30)
[2020-11-26 05:32] LABS: Albumin, Blood 2.4 g/dL (3.4-5.0); Anion Gap 8 mmol/L (6-16); Blood Urea Nitrogen 41 mg/dL (8-24); Bun/Creatinine Ratio 8.9 (12.0-20.0); CO2, Blood 24 mmol/L (21-32); Calcium, Blood 8.4 mg/dL (8.5-10.1); Chloride, Blood 104 mmol/L (98-108); Creatinine, Blood 4.59 mg/dL (0.40-1.00); Glomerular Filtration Rate 10 (60-); Glucose, Blood 89 mg/dL (70-99); Phosphorus, Blood 6.2 mg/dL (2.5-4.9); Potassium, Blood 5.5 mmol/L (3.5-5.5); Sodium, Blood 136 mmol/L (136-145)
--- NOTE | 2020-11-26 17:28 | NUR ---
PT UP IN CHAIR THROUGHOUT DAY. COLORING AND DOING WORD SEARCH PUZZLES. NO REPORT OF PAIN THROUGH DAY AND REPORTS PAIN HAS IMPROVED SINCE SHE ARRIVED TO THE HOSPITAL. STATES SHE FEELS MORE DROWSY TODAY. 1 PERSON ASSIST USING A FWW TO BATHROOM AND BACK. SHOWER TAKEN TODAY AND TOLERATED WELL. HOPEFUL FOR PERMCATH TO BE PLACE TOMORROW. BLOOD CULTURES WITH NO GROWTH IN 3 DAYS.
[2020-11-27 08:28] LABS: Hematocrit 33.2 % (33.0-51.0); Hemoglobin 9.8 g/dL (11.5-16.0)
[2020-11-27 08:42] LABS: Magnesium, Blood 2.3 mg/dL (1.6-2.4)
[2020-11-27 08:43] LABS: Albumin, Blood 2.5 g/dL (3.4-5.0); Anion Gap 10 mmol/L (6-16); Blood Urea Nitrogen 42 mg/dL (8-24); CO2, Blood 24 mmol/L (21-32); Calcium, Blood 8.3 mg/dL (8.5-10.1); Chloride, Blood 105 mmol/L (98-108); Creatinine, Blood 4.65 mg/dL (0.40-1.00); Glomerular Filtration Rate 10 (60-); Glucose, Blood 85 mg/dL (70-99); Phosphorus, Blood 6.2 mg/dL (2.5-4.9); Potassium, Blood 5.1 mmol/L (3.5-5.5); Sodium, Blood 139 mmol/L (136-145)
[2020-11-27 11:55] LABS: Influenza A, PCR Negative (NEGATIVE); Influenza B, PCR Negative (NEGATIVE); Resp Syncytial Virus, PCR Negative (NEGATIVE); SARS-Cov-2 (COVID-19) PCR, MMC Negative (NEGATIVE)
--- NOTE | 2020-11-27 14:43 | NUR ---
Initial palliative care consult: Svitlana is an 80 year old with a history of breast cancer, kidney cancer, ESRD on HD (currently not dialized in the last week due to perm cath removal d/t positive blood cultures), HTN, GERD, UTI and sepsis. She was admitted on 11/15/20 with osteomylitis of the lumbar spine L2-L3. Svitlana is and lives at [facility]. She never had any biological children. Her late had 5 children when they (His children were ages 3-16 at the time they wed.) She reports that the childen never had a very good relationship with her, however she reports that they are starting to "come around." She reports that she has been having difficulty with her ADLs recently and states that when she goes back to [facility] that she will be moving into the PC (personal care) area where she will have more assistance. Dr. Syed visited during my visit with Svitlana. He states that her blood cultures from 11/23/20 are not growing any bacteria and that it appears her infection is starting to respond to the antibiotics. She will need 6 weeks of IV antiobitics according to Dr. Syed and that she may need additional PO antibiotics after she completes the IV course. Per chart notes CM is working on potentially a SNF stay for Svitlana after her discharge from the hospital for antibiotics and continued therapies. Svitlana reports that she is weak. She states that her right low back and hip area ache off and on. Her pain does improve with PO medications. Discussed her infection and that the pain is from the infection and that the pain will likely improve as her infection improves. She reports that her pain increases when she works with therapy, however she states that she knows she needs to work with therapy to get better. She has no other complaints at this time except the discomfort in her R hip/low back area. She reports that she used to have burning with urination and frequency along with skin irritation to her josi area. She states that this is starting to get better with the creams and powders that staff are using. Svitlana tells me about her life stories. She was #3 of 10 children and that she was very close to her mother. She reports that her father was an alcoholic who smoked all the time and that he "Did things to me." She reports she has had a rough life but had good times during her life. He has ansley and believes that God will see her through this illness. Her goal is to have the infection improve, get stronger and to be able to go home back to [facility]. She reports that she wants to continue with her dialysis treatments despite the uncomfortable chairs that she has to sit in at the outpatient HD clinic. Discussed her code status. She states that she is unsure of whether or not she would want CPR. She states "I think I want them to try but I don't want to live on life support." Encouraged her to think about her options as she will be asked her wishes when she goes to SNF. In the past she has opted to be a full code, however she is starting to possibly waiver on that decision. Provided her with some gentle education re: POLST and resusitation. Will allow her to think about what she would want. She is requesting a visit from Chaplain Lezama. She reports she met Lise when her was ill and finds great comfort in her visits with Lise. Plan is for her to have permcath replaced, possibly this afternoon, restart HD, continue IV antibiotics likely at SNF per Dr. Syed's recommendations and to return back to [facility]. Will continue to have gentle conversations with her re: code status. She is clear at this time that she does not wish to stop HD treatments. PC to follow.
[2020-11-27 16:08] LABS: International Normalized Ratio 1.12; Prothrombin Time Results 11.9 Sec (9.7-11.5)
--- NOTE | 2020-11-27 18:42 | NUR ---
SHIFT SUMMARY: PT A&O; FORGETFUL; CALM AND COOPERATIVE WITH CARE. NO C/O PAIN THIS SHIFT. PT NPO T/O SHIFT; DIALYSIS PERMACATH SCHEDULED FOR PLACEMENT THIS SHIFT. IV ABX CONTINUING. WCTM.
--- NOTE | 2020-11-27 19:19 | NUR ---
Spiritual care note: Had a long visit with Svitlana this afternoon. She looks much better than she did last week. She appears more mentally clear and tells me she has not felt this good in a long time. I briefly touched on her Full Code status and for now, she wants to remain FC. She spoke about her and told me more stories from their life together. She understands that she will be moving to a higher level of care and is ok with this. Prayer for continued healing provided. I will remain available.
--- NOTE | 2020-11-27 21:34 | NUR ---
RICE DRYER MECHANIC ASKED FOR ASSISTANCE WITH BLEEDING FROM LATERAL SIDE OF NECK GUIDE WIRE INSERTION SITE. DRESSING WAS SATURATED AND FLOWING DOWN THE CHEST. TAPE WAS LIFTING UP. DRESSING AROUND THE PERMACATH ALSO SATURATED. IMMEDIATLEY PUT PRESSURE ON SITE. CLARENCE VANESSA FROM [facility] SHOWED UP AND CALLED PCU FOR DRESSING TO HELP IT CLOT. AFTER RECEIVING IT, CLEANED UP THE PATIENT AND REMOVED DRESSING WHILE HOLDING PRESSURE. TEGADERM WAS NOT INTACT, DRESSING WAS 100% SATURATING AND SLIDING OFF SITE. REPLACED DRESSING USING COMPRESSION TAPE TIGHTING IT DOWN FURTHER. THERE IS PUFFINESS UNDER THE SKIN WHERE IT APPEARS THERE MIGHT BE BLEEDING UNDERNEATH. MILD BLEEDING NOTED AROUND THE PERMACATH SITE. NEW GAUZE PLACED, CHANGED GAUZE ON TIP OF PERMACATH USING ALCOHOL TO CLEAN THE BLOOD OFF THE TUBING, RE-WRAPPED. ENCOURAGED THE PATIENT NOT TO MOVE HER ARM TO HELP PREVENT BLEEDING. SHORTLY LATER THE SITE STARTED BLEEDING AGAIN. DRESSING WAS INTACT THIS TIME. THEREFORE RE-ENFORCED IT WITH EXTRA GAUZE TO SOAK UP THE BLOOD AND PUT MORE PRESSURE TAPE ON IT. ASSISTED THE PATIENT TO THE BED TO SUPPORT HER BETTER AND PREVENT HER FROM MOVING THAT SHOULDER. KEPT HER AT 50 DEGREE ANGLE. SUPPORTED SHOULDER AND ARM WITH PILLOWS, CALLED PCU FOR SANDBAG. PLACED 2LB SAND BAG ON THE SITE. INFORMED THE CHARGE NURSE OF SITUATION. CHECKED PT/INR LEVELS, WNL. WILL CONTINUE TO MONITOR.
--- NOTE | 2020-11-28 05:16 | NUR ---
SHIFT SUMMARY PT HAD PERMACATH PLACED TODAY, WHEN THIS RN CAME ON SHIFT PT HAD JUST GOTTEN BACK TO ROOM AND WAS HAVING DRESSING FIXED BECAUSE OF CONTINUED BLEEDING. AT 2133 PT'S DRESSING STARTED TO BLEED AGAIN, SEE DAVI LEONARDO RN NURSING NOTE. OTF LIMA FROM [facility] REDRESSED SITE WITH MARLYN. PT STARTED BLEEDING AGAIN, DRESSING REINFORCED WITH 2LB SANDBAG PLACED TO HOLD PRESSURE. ONCE IN BED PT STATED FEELING MORE COMFORTABLE AND SLEPT WELL T/O NIGHT. MEDICATED FOR PAIN X2. PT IS LAYING IN BED WITH EYES CLOSED, EVEN AND UNLABORED RESPIRATIONS. BED IN LOWERED POSITION WITH HOB ELEVATED @ 50 DEGREES, ALARM IN PLACE AND SIDE RAILS UP X2. CALL LIGHT AND PERSONAL ITEMS WITH IN REACH. NO APPARENT NEEDS OR DISTRESS AT THIS TIME, WILL CONTINUE TO MONITOR UNTIL REPORT GIVEN TO DAY RN.
[2020-11-28 06:10] LABS: Hematocrit 31.6 % (33.0-51.0); Hemoglobin 9.5 g/dL (11.5-16.0)
[2020-11-28 06:26] LABS: Albumin, Blood 2.4 g/dL (3.4-5.0); Anion Gap 12 mmol/L (6-16); Blood Urea Nitrogen 42 mg/dL (8-24); Bun/Creatinine Ratio 8.8 (12.0-20.0); CO2, Blood 23 mmol/L (21-32); Calcium, Blood 8.3 mg/dL (8.5-10.1); Chloride, Blood 106 mmol/L (98-108); Creatinine, Blood 4.75 mg/dL (0.40-1.00); Glomerular Filtration Rate 9 (60-); Glucose, Blood 77 mg/dL (70-99); Magnesium, Blood 2.5 mg/dL (1.6-2.4); Phosphorus, Blood 6.4 mg/dL (2.5-4.9); Potassium, Blood 5.1 mmol/L (3.5-5.5); Sodium, Blood 141 mmol/L (136-145)
--- NOTE | 2020-11-28 18:29 | NUR ---
shift summary PT AXO X4, PLEASANT AND COOPERATIVE WITH CARE THOUGH AT DINNER TIME PT STATED THAT SHE GOT "YESTERDAY'S DINNER FOR BREAKFAST." INSTEAD OF A DINNER TRAY AT DINNER TIME. BP ELEVATED WITH AM VS, DR PATRICIO NOTIFIED. MIDLINE PLACED THIS SHIFT PER PATRICE HOSKINS RN. SINUS WITH PAC'S AND PVC'S AT 55 THIS AM. PT MEDICATED FOR PAIN PER EMAR. BARRIER CREME APPLIED TO COCCYX. PT REFUSED ANTIFUNGAL POWDER STATING THAT "IT VILLEDA." DIALYSIS THIS SHIFT. BED IN LOW POSITION, CALL LIGHT WITHIN REACH. DENIES SOB AND N/V.
--- NOTE | 2020-11-29 03:26 | NUR ---
Cardiac: BP is elevated 165/87, PRN hydralazine was given. Recheck was 187/60, Dr Ramsey was notified and order for a repeat dose of hydralazine 10 mg is ordered.
--- NOTE | 2020-11-29 06:52 | NUR ---
Shift summary: Patient is A&Ox4 forgetful at times. Assist of 1 to chair. BP continues to be high after hydralazine x2, last recheck was 185/87. Patient is asymptomatic with elevations. Reporting back pain, scheduled percocet and tramadol x1 with good effect. Bed alarm is on for safety.
[2020-11-29 08:37] LABS: Albumin, Blood 2.3 g/dL (3.4-5.0); Anion Gap 7 mmol/L (6-16); Blood Urea Nitrogen 25 mg/dL (8-24); Bun/Creatinine Ratio 6.7 (12.0-20.0); CO2, Blood 30 mmol/L (21-32); Calcium, Blood 8.5 mg/dL (8.5-10.1); Chloride, Blood 105 mmol/L (98-108); Creatinine, Blood 3.71 mg/dL (0.40-1.00); Glomerular Filtration Rate 12 (60-); Glucose, Blood 98 mg/dL (70-99); Magnesium, Blood 2.2 mg/dL (1.6-2.4); Potassium, Blood 3.6 mmol/L (3.5-5.5); Sodium, Blood 142 mmol/L (136-145)
[2020-11-29 11:12] LABS: Influenza A, PCR Negative (NEGATIVE); Influenza B, PCR Negative (NEGATIVE); Resp Syncytial Virus, PCR Negative (NEGATIVE); SARS-Cov-2 (COVID-19) PCR, MMC Negative (NEGATIVE)
[2020-11-29] MEDS ORDERED: Percocet 5-3251 EACH PO (11:12)
[2020-11-29] MEDS ORDERED: HYDRALAZINE HCL IV (11:14)
[2020-11-29] MEDS ORDERED: OXYACE7.5T PO (11:15)
[2020-11-29] MEDS ORDERED: AMPICILLIN SODIU2 G1 IV (11:17)
[2020-11-29] MEDS ORDERED: CEFTRIAXONE2 G1 IV (11:18)
[2020-11-29] MEDS ORDERED: HEPARIN SC (11:19)
[2020-11-29] MEDS ORDERED: LIDOCAINE1 EAC1 TOP (11:20)
[2020-11-29] MEDS ORDERED: ANTIFUNGAL POWD71 GM TOP (11:21)
[2020-11-29] MEDS ORDERED: ONDA4ODT MM (11:21)
[2020-11-29] MEDS ORDERED: MELATONIN5 M1 PO (11:21)
[2020-11-29] MEDS ORDERED: SEVEC800 PO (11:22)
[2020-11-29] MEDS ORDERED: SODIUM CHLORIDE10 M1 IV (11:23)
[2020-11-29] MEDS ORDERED: TRAM50 PO (11:25)
[2020-11-29] MEDS ORDERED: VISBIOME PROBI1 EACH PO (11:26)
--- NOTE | 2020-11-29 12:30 | NUR ---
PT DISCHARGING TO SNF PT AxOx4 WITH OCCAS CONFUSION. HAD DIALYSIS THIS AM. PT VITALS REVIEWED. DC INSTRUCTIONS SENT WITH TRANSPORT, INCLUDING HARD COPY OF RX. PT HAD BED BATH AND BM TODAY. MEDICATED PER EMAR FOR PAIN. REPORT CALLED TO OTF RUIZ AT [facility]. FAMILY NOTIFIED OF TRANSFER. PT LEAVING VIA WC TRANSPORT WITH [facility]. PLEASANT AND COOPERATIVE WITH CARE. DENIES ANY QUESTIONS. PERSONAL BELONGINGS GATHERED AND SENT WITH PT. SAFELY ESCORTED OUT OF FACILITY WITH [facility].
[2020-12-11] MEDS ORDERED: Florastor250 MG PO (15:30)
== END 2020-11-29 12:29 | DRG 314 ==
LOC: ER 19:47 → MEDS 19:48
PROVIDERS: Emergency Medicine; Family Medicine; Internal Medicine; Internal Medicine Nephrology; Radiology Diagnostic Radiology; ADMIT Internal Medicine
PROC: 5A1D70Z Performance of Urinary Filtration, Intermittent, Less than 6 Hours Per Day (ICD-10-PCS; 2020-11-14)
PROC: 5A1D70Z Performance of Urinary Filtration, Intermittent, Less than 6 Hours Per Day (ICD-10-PCS; 2020-11-15)
PROC: 30233N1 Transfusion of Nonautologous Red Blood Cells into Peripheral Vein, Percutaneous Approach (ICD-10-PCS; principal; 2020-11-16)
PROC: 5A1D70Z Performance of Urinary Filtration, Intermittent, Less than 6 Hours Per Day (ICD-10-PCS; 2020-11-17)
PROC: 5A1D70Z Performance of Urinary Filtration, Intermittent, Less than 6 Hours Per Day (ICD-10-PCS; 2020-11-18)
PROC: 5A1D70Z Performance of Urinary Filtration, Intermittent, Less than 6 Hours Per Day (ICD-10-PCS; 2020-11-20)
PROC: 05PYX3Z Removal of Infusion Device from Upper Vein, External Approach (ICD-10-PCS; 2020-11-20)
PROC: 0JH63XZ Insertion of Tunneled Vascular Access Device into Chest Subcutaneous Tissue and Fascia, Percutaneous Approach (ICD-10-PCS; 2020-11-28)
PROC: 05HM33Z Insertion of Infusion Device into Right Internal Jugular Vein, Percutaneous Approach (ICD-10-PCS; 2020-11-28)
PROC: B5131ZA Fluoroscopy of Right Jugular Veins using Low Osmolar Contrast, Guidance (ICD-10-PCS; 2020-11-28)
PROC: 5A1D70Z Performance of Urinary Filtration, Intermittent, Less than 6 Hours Per Day (ICD-10-PCS; 2020-11-28)
PROC: 5A1D70Z Performance of Urinary Filtration, Intermittent, Less than 6 Hours Per Day (ICD-10-PCS; 2020-11-29)
DX: T82.7XXA Infection and inflammatory reaction due to other cardiac and vascular devices, implants and grafts, initial encounter (principal); N18.6 End stage renal disease; A41.81 Sepsis due to Enterococcus; G92 Toxic encephalopathy; I48.92 Unspecified atrial flutter; K91.841 Postprocedural hemorrhage of a digestive system organ or structure following other procedure; I12.0 Hypertensive chronic kidney disease with stage 5 chronic kidney disease or end stage renal disease; Z79.82 Long term (current) use of aspirin; Z87.891 Personal history of nicotine dependence; Z99.2 Dependence on renal dialysis; E88.09 Other disorders of plasma-protein metabolism, not elsewhere classified; K21.9 Gastro-esophageal reflux disease without esophagitis; D63.1 Anemia in chronic kidney disease; Z79.01 Long term (current) use of anticoagulants; I16.0 Hypertensive urgency; B37.9 Candidiasis, unspecified; F40.240 Claustrophobia; M46.46 Discitis, unspecified, lumbar region; E83.39 Other disorders of phosphorus metabolism
CPT/HCPCS: 0241U; 36415; 36430; 36558; 36569; 36589; 36598; 51701; 71045; 72110; 72220; 74150; 76937; 78306; 80053; 80069; 80074; 80202; 81001; 82947; 83735; 84132; 84145; 85014; 85018; 85025; 85610; 85651; 86140; 86317; 86850; 86900; 86901; 86923; 87040; 87070; 87077; 87086; 87186; 93306; 96372; 96374-59; 96375; 96376; 97110; 97116; 97162; 97165; 97530; 97535; 99152; 99284; 99285-25; A9270; A9561; C1750; C1751; C1769; C1894; G0378; J0290; J0360; J0690; J0696; J0881; J1644; J2250; J2405; J3010; J3370; J7030; J7040; J7050; P9016

== ENCOUNTER 2020-12-29 01:00 | Day surgery (SDC) | payer MEDICARE, OTHER ==
[~2020-12-29 01:00] MED LIST changes: +AMPICILLIN SODIU2 G1 IV; +ANTIFUNGAL POWD71 GM TOP; +Aspirin EC81 MG PO; +CEFTRIAXONE2 G1 IV; +CINA30 PO; +Florastor250 MG PO; +HEPARIN SC; +HYDHCL25 PO; +HYDRALAZINE HCL IV; +LIDOCAINE1 EAC1 TOP; +MELATONIN5 M1 PO; +METO25 PO; +ONDA4ODT MM; +OXYACE7.5T PO; +OXYCODONE-ACET1 EAC3 PO; +SODIUM CHLORIDE10 M1 IV; +TRAM50 PO; +VISBIOME PROBI1 EACH PO
== END 2020-12-29 12:10 | disposition home or self-care (01) ==
LOC: ATC 01:00
DX: R78.81 Bacteremia (principal); M46.26 Osteomyelitis of vertebra, lumbar region; I12.0 Hypertensive chronic kidney disease with stage 5 chronic kidney disease or end stage renal disease; N18.6 End stage renal disease; D63.1 Anemia in chronic kidney disease; K21.9 Gastro-esophageal reflux disease without esophagitis; E78.5 Hyperlipidemia, unspecified; Z99.2 Dependence on renal dialysis; Z79.01 Long term (current) use of anticoagulants; Z79.82 Long term (current) use of aspirin; Z88.6 Allergy status to analgesic agent; Z88.0 Allergy status to penicillin; Z88.2 Allergy status to sulfonamides
CPT/HCPCS: 36569; 71045; C1751